=== PATIENT | male | born 1945 | race Caucasian/White ===

== ENCOUNTER 2022-10-23 00:47 | Day surgery (SDC) | payer BC, SELFPAY ==
[2022-10-09 08:45] VITALS: BMI 20.9
[2022-10-23 10:24] VITALS: BP 120/68; PULSE 68; RESP 20; TEMP 36.4; O2SAT 100
[2022-10-23] MEDS: LACTATED RINGERS 1,000 ML 150 ML IV CONT (10:27)
--- NOTE | 2022-10-23 10:45 | PM.HPGS ---
History of Present Illness History of Present Illness Consent: Risks, benefits, and alternatives have been discussed and questions answered. Patient agrees to proceed with procedure. Chief complaint: hx of colon polyps Narrative: Pablo White is a 77 year old male Presents for screening colonoscopy. Patient has a prior history of colon polyps most recently 2018. Family history is also significant for polyps in his sister. Patient reports his current weight appetite bowel movements are normal. Patient does report some vague epigastric discomfort. He has been on Nexium for acid reflux for many years but recently this has failed to alleviate his epigastric discomfort. Patient presents today for neoplasia screening colonoscopy. Review of Systems Review of Systems: Review of systems noncontributory. [facility] Past Medical History Medical History (Updated 10/23/22 @ 10:47 by Forrest Coreas MD) Cigarette nicotine dependence in remission GERD (gastroesophageal reflux disease) Pure hypercholesterolemia, unspecified Social History Social History Smoking packs per day: 1.5 Smoking cigarettes per day: 30.0 Years smoked: 50 Smoking pack-years: 75.00 Smoking status: Former smoker Second hand tobacco smoke exposure: No Alcohol intake: current Drinks per week: 1 Substance use: current Substance use type: marijuana Last use: 09/07/22 Lack of Transportation: No Lack of Food: Never True Current Housing: I Have Housing Concerned About Future Housing: No Difficulty Paying Gas/Electric Bills: No Difficulty Paying for Meds: No Currently Unemployed: No Difficulty w/ Childcare or Family Care: No Living arrangements: alone Occupation/Education: retired Gender identity (if verbalized by the patient): Male Sexual Orientation (if Verbalized by the Patient): Straight or Heterosexual Spiritual care concerns: No Meds Home Medications and Allergies Home Medications Medication Instructions Recorded Confirmed Type esomeprazole magnesium 40 mg 40 mg PO DAILY 10/07/22 10/23/22 History capsule,delayed release (Nexium) vitamin B complex 1 tab-cap PO DAILY 10/07/22 10/23/22 History Allergies Allergy/AdvReac Type Severity Reaction Status Date / Time aspirin Allergy Unknown HIVES Verified 10/23/22 10:23 ibuprofen Allergy Unknown HIVES Verified 10/23/22 10:23 Vital Signs Vital Signs - 24 hr 10/23/22 10:24 Temperature 97.5 F L Pulse Rate 68 Respiratory Rate 20 Blood Pressure 120/68 Pulse Oximetry 100 Oxygen Delivery Room Air Exam Narrative: Physical exam reveals patient to be alert. Vital signs are stable. HEENT exam is unremarkable. Patient is anicteric. Lungs are clear to auscultation and percussion. Heart is without murmur or extra sounds. Abdomen bowel sounds present soft nontender with no organomegaly. Digital external rectal exam is normal. Assessment and Plan Assessment and plan (1) History of colon polyps: Code(s): Z86.010 - Personal history of colonic polyps Status: Acute Assessment and Plan: Patient has a personal history of colon polyps as well as a family history of colon polyps. Plan for surveillance colonoscopy now and consider this at 3-5 year intervals in the future.
--- NOTE | 2022-10-23 11:00 | P.PNAN_ITS ---
Anes - Initial Pre Proc Eval Procedure: Operation Date: 10/23/22 11:15 Proposed Procedures p Colonoscopy - Forrest Coreas MD Date/Time: 10/23/22 11:00 Surgeon: Forrest Coreas MD Pre Op Diagnosis: hx of colon polyps Patient Data Age: 77 Gender: M Height: 1.8 m Weight: 61.6 kg Last Vital Signs Temp 97.5 F L 10/23/22 10:24 Pulse 68 10/23/22 10:24 Resp 20 10/23/22 10:24 BP 120/68 10/23/22 10:24 Pulse Ox 100 10/23/22 10:24 O2 Del Method Room Air 10/23/22 10:24 Allergies Allergy/AdvReac Type Severity Reaction Status Date / Time aspirin Allergy Unknown HIVES Verified 10/23/22 10:23 ibuprofen Allergy Unknown HIVES Verified 10/23/22 10:23 Home Medications Medication Instructions Recorded Confirmed Type esomeprazole magnesium 40 mg 40 mg PO DAILY 10/07/22 10/23/22 History capsule,delayed release (Nexium) vitamin B complex 1 tab-cap PO DAILY 10/07/22 10/23/22 History Patient hx anesthesia problems: none Family hx anesthesia problems: none Results Review: All pre-operative results and documents have been reviewed as part of the pre- operative evaluation. [facility] Past Medical History Medical History (Updated 10/23/22 @ 10:47 by Forrest Coreas MD) Cigarette nicotine dependence in remission GERD (gastroesophageal reflux disease) Pure hypercholesterolemia, unspecified Social History Social History Smoking packs per day: 1.5 Smoking cigarettes per day: 30.0 Years smoked: 50 Smoking pack-years: 75.00 Smoking status: Former smoker Second hand tobacco smoke exposure: No Alcohol intake: current Drinks per week: 1 Substance use: current Substance use type: marijuana Last use: 09/07/22 Lack of Transportation: No Lack of Food: Never True Current Housing: I Have Housing Concerned About Future Housing: No Difficulty Paying Gas/Electric Bills: No Difficulty Paying for Meds: No Currently Unemployed: No Difficulty w/ Childcare or Family Care: No Living arrangements: alone Occupation/Education: retired Gender identity (if verbalized by the patient): Male Sexual Orientation (if Verbalized by the Patient): Straight or Heterosexual Spiritual care concerns: No Anes - Eval Final PreProcedure Day of Procedure 10/23/22 11:00 Patient weight: normal Heart: regular rate and rhythm Lungs: clear to auscultation Airway: Mallampati scale class II Neurological: alert and oriented Last oral intake: >/= 8 hours ASA classification: III Emergent: no Anesthetic plan: proceed Anesthesia type and monitoring: general GIVS and standard monitoring Results Review: All pre-operative results and documents have been reviewed as part of the pre- operative evaluation. Informed Consent: The patient's anesthetic plan and its attendant risks and benefits were discussed with the patient/family/POA. Questions were solicited and answers provided to the satisfaction of the patient/family/POA.
[2022-10-23] MEDS: SIMETHICONE ORAL SUSPENSION 20 MG/0.3 ML 30 ML BOTTLE 0.6 ML IRRIGATION (12:11)
[2022-10-23 12:27] VITALS: BP 107/66; PULSE 76; RESP 17; O2SAT 100
[2022-10-23 12:37] VITALS: BP 106/74; PULSE 71; RESP 19; O2SAT 100
[2022-10-23 12:47] VITALS: BP 123/70; PULSE 54; RESP 19; O2SAT 100
== END 2022-10-23 12:56 | disposition home or self-care (01) ==
PROVIDERS: PCP Family Medicine; Visit Provider Internal Medicine Gastroenterology
PROC: 0DJD8ZZ Inspection of Lower Intestinal Tract, Via Natural or Artificial Opening Endoscopic (ICD-10-PCS; CPT 45378; principal; 2022-10-23 11:15)
DX: Z12.11 Encounter for screening for malignant neoplasm of colon (principal); D12.2 Benign neoplasm of ascending colon; D12.4 Benign neoplasm of descending colon; K64.8 Other hemorrhoids; K21.9 Gastro-esophageal reflux disease without esophagitis; E78.00 Pure hypercholesterolemia, unspecified; Z87.891 Personal history of nicotine dependence
CPT/HCPCS: 45385; 88305; J2704; J7120

== ENCOUNTER 2023-10-29 00:23 | Day surgery (SDC) | payer BC, SELFPAY ==
[2023-10-12 11:15] VITALS: BMI 19.4
[2023-10-29 08:47] VITALS: BP 113/77; PULSE 55; RESP 18; TEMP 36.3; O2SAT 100
[2023-10-29] MEDS: LACTATED RINGERS 1,000 ML 150 ML IV CONT (09:00)
--- NOTE | 2023-10-29 09:48 | PM.HPGS ---
History of Present Illness History of Present Illness Consent: Risks, benefits, and alternatives have been discussed and questions answered. Patient agrees to proceed with procedure. Chief complaint: GERD Narrative: Pablo White is a 78 year old male with gerd on longstanding ppi for years, recently discontinued for 2 months because worried about possible side effects but then developed hoarseness, now he is back on ppi. Still sometimes with breakthrough and throat discomfort after waking up despite diet changes, ppi is helping but not gone. Had egd but years ago. Review of Systems Review of Systems: All systems reviewed & are unremarkable except as noted in HPI and below PMFSH Past Medical History Medical History Cigarette nicotine dependence in remission GERD (gastroesophageal reflux disease) Pure hypercholesterolemia, unspecified Testicle cancer Family History Family History Father Heart disease Mother Lung cancer Sibling Heart disease Colon cancer Social History Social History Smoking packs per day: 1.5 Smoking cigarettes per day: 30.0 Years smoked: 50 Smoking pack-years: 75.00 Smoking status: Former smoker Tobacco type: cigarettes Second hand tobacco smoke exposure: No Alcohol intake: current Drinks per week: 1 Substance use: current Substance use type: other Other substance usage details: THC gummy-3-4x week Last use: 09/07/22 Do You Feel Safe in your Home?: Yes Lack of Transportation: No Lack of Food: Never True Current Housing: I Have Housing Concerned About Future Housing: No Difficulty Paying Gas/Electric Bills: No Difficulty Paying for Meds: No Currently Unemployed: No Education: High School Diploma/GED Difficulty w/ Childcare or Family Care: No Living arrangements: alone Occupation/Education: retired Gender identity (if verbalized by the patient): Male Sexual Orientation (if Verbalized by the Patient): Straight or Heterosexual Spiritual care concerns: No Meds Home Medications and Allergies Home Medications Medication Instructions Recorded Confirmed Type vitamin B complex 1 tab-cap PO DAILY 10/07/22 10/12/23 History vitamin D3 25 mcg (1,000 unit)-vit 1 tablet PO DAILY 09/08/23 10/12/23 History K2 90 mcg disintegrating tablet melatonin 3 mg capsule 3 mg PO QHS 10/06/23 10/12/23 History omega 9-bwl-ctc-fish oil 60 mg-90 1 cap PO DAILY 10/06/23 10/12/23 History mg-500 mg capsule (Fish Oil) omeprazole 40 mg capsule,delayed 40 mg PO DAILY #30 caps 10/06/23 10/12/23 Rx release Allergies Allergy/AdvReac Type Severity Reaction Status Date / Time aspirin Allergy Unknown HIVES Verified 10/29/23 08:46 ibuprofen Allergy Unknown HIVES Verified 10/29/23 08:46 Vital Signs Vital Signs - 24 hr 10/29/23 08:47 Temperature 97.3 F L Pulse Rate 55 L Respiratory Rate 18 Blood Pressure 113/77 Pulse Oximetry 100 Oxygen Delivery Room Air Exam Const: General: comfortable and no acute distress HENMT: Face/Nose/Sinus: Normal nares present Eyes: General: appearance normal, both eyes and all related structures Neck: Neck: no JVD Resp: Auscultation: clear to auscultation bilaterally Cardio: Rate: regular rate Rhythm: regular rhythm GI: Inspection: non-distended GI Palp: Yes Soft to palpation Skin: General skin exam: normal color Neuro: General: gait normal Speech: normal speech Extrem: General: normal to inspection Psych: Mental Status: mental status grossly normal Assessment and Plan Assessment and plan (1) GERD (gastroesophageal reflux disease): Qualifiers: Esophagitis presence: esophagitis presence not specified Qualified Code(s): K21.9 - Gastro-esophageal reflux disease without esophagitis Code(s): K21.9 - Carlos Alberto
[2023-10-29 10:04] VITALS: BP 101/68; PULSE 64; RESP 18; O2SAT 100
[2023-10-29 10:14] VITALS: BP 112/70; PULSE 52; RESP 14; O2SAT 100
[2023-10-29 10:24] VITALS: BP 119/78; PULSE 66; RESP 18; O2SAT 100
== END 2023-10-29 10:36 | disposition home or self-care (01) ==
PROVIDERS: PCP Family Medicine; Visit Provider Internal Medicine Gastroenterology
PROC: 0DJ08ZZ Inspection of Upper Intestinal Tract, Via Natural or Artificial Opening Endoscopic (ICD-10-PCS; CPT 43235; principal; 2023-10-29 10:00)
DX: K29.50 Unspecified chronic gastritis without bleeding (principal); E78.00 Pure hypercholesterolemia, unspecified; Z87.891 Personal history of nicotine dependence; Z85.47 Personal history of malignant neoplasm of testis; Z80.1 Family history of malignant neoplasm of trachea, bronchus and lung; Z80.0 Family history of malignant neoplasm of digestive organs; Z82.49 Family history of ischemic heart disease and other diseases of the circulatory system
CPT/HCPCS: 43239; 88305; J2704; J7120

== ENCOUNTER 2024-09-19 20:51 | Inpatient (IN) | payer BC, SELFPAY ==
--- NOTE | ~2024-09-19 | CT_ITS ---
Non-contrast CT scan of the Abdomen and Pelvis Clinical indication: Abdominal pain Technique: 2.5 mm axial scans were obtained through the abdomen and pelvis without intravenous or or al contrast. Dose reduction technique was used on this scan by utilizing automated exposure control a nd iterative reconstruction technique. The dose-length product (DLP) was 211.90 mGy-cm. COMPARISON: 09/20/2024 Findings: Images through the lung bases reveal no abnormalities. There is no evidence of renal or ureteral calculi. The kidneys and the ureters are nondilated. The liver, spleen, pancreas, gallbladder, and adrenals appear normal. There are atherosclerotic calci fications of the aorta. . There is no evidence of bowel obstruction. Images through the pelvis were performed. There is no evidence of ascites or lymphadenopathy. Urinary bladder unremarkable. Prostate gland enlarged. Impression: No acute abnormality. Reviewed, dictated and finalized at [facility]. Impression: No acute abnormality.
--- NOTE | ~2024-09-19 | CT_ITS ---
Clinical Indication: Abdominal pain, chest pain CT Scan of the Chest, Abdomen, and Pelvis with Contrast: Technique: Contiguous sections were acquired throughout the chest, abdomen, and pelvis after intraven ous administration of 100 cc of Omnipaque 350. Dose reduction technique was used on this scan by amanda douglas automated exposure control and iterative reconstruction technique. The dose-length product (DL P) was 394.28 mGy-cm. Findings: There is no evidence of any significant mediastinal, hilar or axillary lymphadenopathy. The mediastin al soft tissues and vascular structures appear normal. There is no evidence of pleural or pericardial effusion. There is mild emphysema. Probable focal atelectatic change or scarring at the lingula anteriorly. The liver, spleen, pancreas, gallbladder, adrenals and kidneys are within normal limits. There are at herosclerotic calcifications of the aorta. No lymphadenopathy. No bowel obstruction or bowel wall thickening. There is no evidence to suggest acute appendicitis. Urinary bladder is unremarkable. No pelvic mass seen. No ascites. Impression: Mild emphysema. Probable focal atelectatic change or scarring at the anterior lingula. Pneumonia less likely. No significant abnormality in the abdomen or pelvis. Reviewed, dictated and finalized at [facility]. Impression: Mild emphysema. Probable focal atelectatic change or scarring at the anterior lingula. Pneumoni a less likely. No significant abnormality in the abdomen or pelvis.
--- OUTSIDE RECORDS SUMMARY | 2024-09-19 20:53 | XMS_ITS | Clinical Summary ---
Author Organization [facility] Address [address] [place] [id number] Care Team Providers Care Crm Architect Name Role Phone Ulises Ward MD Primary Care Provider Allergies Active Allergy Reactions Criticality Noted Date Comments Aspirin Hives 04/14/2023 Ibuprofen Hives 04/14/2023 Medications tamsulosin (FLOMAX) 0.4 MG Cap Take 1 capsule (0.4 mg total) by mouth daily. 30 capsule 3 Active oxyCODONE-acetamino phen (PERCOCET) 5-325 MG tabletIndications:A cute Pain < 7 Day Supply Take 1 tablet by mouth every 6 (six) hours as needed for Pain. Indications: Acute Pain < 7 Day Supply 15 tablet 3 Active ondansetron (ZOFRAN-ODT) 4 MG disintegrating tablet Take 1 tablet (4 mg total) by mouth every 8 (eight) hours as needed for Nausea. 20 tablet 3 Active Social History Tobacco Use Types Packs/Day Years Used Date Smoking Tobacco: Never Smokeless Tobacco: Never Tobacco Cessation:Counseling Given: Not Answered Alcohol Use Standard Drinks/Week Comments Never 0 (1 standard drink = 0.6 oz pur e alcohol) Sex and Gender Information Value Date Recorded Sex Assigned at Not on file Legal Sex Male 1:32 PM SECTIONIZER Gender Identity Not on file Sexual Orientation Not on file Last Filed Vital Signs Vital Sign Reading Time Taken Comments Blood Pressure 114/67 04/14/2023 6:36 PM SECTIONIZER Pulse 102 04/14/2023 6:36 PM SECTIONIZER Temperature 36.8 C (98.2 F) 04/14/2023 6:36 PM SECTIONIZER Respiratory Rate 20 04/14/2023 6:36 PM SECTIONIZER Oxygen Saturation 95% 04/14/2023 6:36 PM SECTIONIZER Inhaled Oxygen Concentration - - Weight 65.8 kg (145 lb) 04/14/2023 1:48 PM SECTIONIZER Height 180.3 cm (5' 11 ) 04/14/2023 1:48 PM SECTIONIZER Body Mass Index 20.22 04/14/2023 1:48 PM SECTIONIZER Plan of Treatment Health Maintenance Due Date Last Done Comments Hepatitis C 1963 DTaP, Tdap and Td Vaccines ( 1 - Tdap) 1966 Zoster Vaccines (1 of 2) 1997 Pneumococcal Vaccine: 50+ Years (2 of 2 - PPSV23) 11/15/2016 11/16/2015 RSV Immunization or 60+ Years (1 - 1-dose 75+ series) 2022 COVID-19 Vaccine (4 - 2023-2 5 season) 2024 04/18/2021, 08/31/2020, 08/10/2020 Meningococcal B Vaccine Aged Out No l onger eligible based on patient's age to complete this topic Meningococcal Vaccine Aged Out No juan gricelda eligible based on patient's age to complete this topic RSV Immunizations Under 20 Months Aged Out No longer eligible b ased on patient's age to complete this topic Insurance Care Teams Crm Architect Relationship Specialty Start Date End Date Ulises Ward MD PCP - General FAMILY PRACTICE 04/14/23
[2024-09-19 21:00] VITALS: BP 97/73; PULSE 93; RESP 20; TEMP 36.6; O2SAT 99
[2024-09-19 21:06] VITALS: BP 131/11
[2024-09-19 21:41] VITALS: BP 133/81; PULSE 149; RESP 16; O2SAT 100
--- NOTE | 2024-09-19 21:45 | ECG_ITS ---
Test Date: 2024-09-19 21:58:17 Measurements Intervals [place] Rate: 148 P: 0 [place]: 0 QRS: 92 QRSD: 81 T: 54 QT: 285 QTc: 447 Interpretive Statements ATRIAL FIBRILLATION WITH RAPID VENTRICULAR RESPONSE RIGHT AXIS DEVIATION POSSIBLE RIGHT VENTRICULAR CONDUCTION DELAY BASELINE ARTIFACT- I, II, III ,AVR, AVF, V1 ABNORMAL ECG No previous ECG available for comparison Electronically Signed On 09-20-2024 06:20:42 CDT by Jerod Pleitez D.O.
--- NOTE | 2024-09-19 21:46 | PC.NURSE ---
This RN notified EDP Torossian of pt HR stayig between 140-175. EDP gave no further orders at this time. This RN put in orders for EKG
[2024-09-19 21:51] VITALS: PULSE 141
[2024-09-19 23:30] VITALS: BP 116/81; PULSE 141
[2024-09-19] MEDS: dilTIAZem HCl INJ 25 MG/5 ML VIAL (23:30)
[2024-09-19] MEDS: SODIUM CHLORIDE 0.9% IV 1,000 ML 999 ML (23:30)
[2024-09-19] MEDS: dilTIAZem 100 MG/100 ML 100 MG/100 ML BAG IV CONT (23:30)
[2024-09-20] VITALS (22 sets, daily range): BP systolic 85–117; BP diastolic 56–80; PULSE 64–136; RESP 12–20; TEMP 36.3–36.7; O2SAT 97–100; BMI 18.4
--- NOTE | 2024-09-20 | ECHO_ITS ---
Patient Info Name: Pablo White Age: 79 years : 1945 Gender: Male Ht: 70 in Wt: 132 lbs BSA: 1.71 m2 HR: 77 bpm BP: 92 / 56 mmHg Heart Rhythm: Atrial Fibrillation Technical Quality: Fair Exam Date: 09/20/2024 2:46 PM Exam Location: Echo Lab Patient Status: Outpatient Admit Date: 09/20/2024 Staff Ordering Physician: Teri Dixon MD Filing Or Registry Clerk: Teagan Zelaya RDCS Attending Provider: Teri Dixon MD Exam Type: CA echo doppler color flow Study Info Indications - New onset Afib Complete two-dimensional, color flow and Doppler transthoracic echocardiogram is performed. Summary 1. Complete two-dimensional, color flow and Doppler transthoracic echocardiogram is performed. 2. Left ventricular chamber dimension is normal. 3. Left ventricular systolic function is normal, estimated at 60-65%. 4. The left ventricular diastolic function is normal. 5. E/e' 3 is not elevated. 6. Atrial fibrillation. 7. Left atrial chamber dimension is mildly enlarged. 8. There is mild mitral valve regurgitation. 9. There is mild tricuspid valve regurgitation. 10. No pulmonary hypertension, estimated pulmonary arterial systolic pressure is 32 mmHg. Left Ventricle E/e' 3 is not elevated. Atrial fibrillation. Left ventricular chamber dimension is normal. Left ventricular systolic function is normal, estimated at 60-65%. The left ventricular diastolic function is normal. Right Ventricle Right ventricular chamber dimension is normal. Right ventricular systolic function is normal. Left Atria Left atrial chamber dimension is mildly enlarged. Right Atria Right atrial chamber dimension is normal. Aortic Valve The aortic valve is trileaflet. There is no aortic valve stenosis. There is no aortic valve regurgitation. Pulmonic Valve There is no pulmonic regurgitation. Mitral Valve There is no mitral valve stenosis. There is mild mitral valve regurgitation. Tricuspid Valve There is mild tricuspid valve regurgitation. No pulmonary hypertension, estimated pulmonary arterial systolic pressure is 32 mmHg. Pericardium/Pleural There is no pericardial effusion. Inferior Vena Cava Normal inferior vena cava with >50% collapse upon inspiration consistent with normal right atrial pressure, 5 mmHg. Aorta The aortic root size at the sinus of Valsalva is normal. Left Ventricular Outflow Tract Name Value Normal LVOT 2D LVOT Diameter 2.0 cm Pulmonic Valve Name Value Normal RVOT Doppler RVOT Peak Gradient 2 mmHg PV Doppler PV Peak Gradient 3 mmHg Mitral Valve Name Value Normal MV Doppler MV Decel [place] 381 cm/s2 MV PHT 56 ms MV Area (PHT) 4.0 cm2 4.0-5.0 MV Diastolic Function MV E Peak Velocity 73 cm/s MV A Peak Velocity 2 cm/s MV E/A 41.7 MV Decel Time 192 ms MV Annular TDI MV E/e' (Septal) 0.0 <=8.0 MV E/e' (Lateral) 0.0 <=8.0 MV E/e' (Average) 0.0 Tricuspid Valve Name Value Normal TV Regurgitation Doppler TR Peak Velocity 259 cm/s TR Peak Gradient 27 mmHg Estimated PAP/RSVP RA Pressure 5 mmHg <=5 PA Systolic Pressure 32 mmHg <36 RV Systolic Pressure 32 mmHg <36 Aortic Valve Name Value Normal AV Regurgitation 2D LVOT Area 3.2 cm2 Ventricles Name Value Normal LV Dimensions 2D/MM IVS Diastolic Thickness (2D) 0.9 cm 0.6-1.0 LVID Diastole (2D) 4.1 cm 4.2-5.8 LVIW Diastolic Thickness (2D) 0.9 cm 0.6-1.0 LVID Systole (2D) 3.0 cm 2.5-4.0 LVOT Diameter 2.0 cm LV Mass (2D Cubed) 121.10 g 88.00-224.00 LV Mass Index (2D Cubed) 71 g/m2 49-115 Relative Wall Thickness (2D) 0.46 LV Fractional Shortening/Ejection Fraction 2D/MM LV Fractional Shortening (2D) 27 % 25-43 LV EF (2D Teicholz) 53 % 52-72 LV Diastolic Volume (4C MOD) 66 ml LV EF (4C MOD) 54 % LV Diastolic Length (4C) 6.5 cm LV Systolic Length (4C) 6.0 cm LV Stroke Volume (4C MOD) 36 ml Atria Name Value Normal LA Dimensions LA Volume (4C A-L) 32 ml Report Signatures
--- NOTE | 2024-09-20 00:56 | ED_ITS ---
HPI - Abdominal Pain General Chief Complaint: Abdominal Pain Stated Complaint: +Covid, Gastritis, weight loss Time Seen by Provider: 09/20/24 00:38 Source: patient Mode of arrival: ambulatory Limitations: no limitations History of Present Illness HPI narrative: This is a 79-year-old male who presents to the ED for chief complaint of abdominal pain over the past several days. States that he was diagnosed with COVID about a week ago and started on Paxlovid. States that he took the back slowed for 3 days but was having increasing abdominal pain. States that he has had a 12 lb weight loss because eating any kind of food is painful to the abdomen. States he has lost his appetite. Endorses mild shortness of breath as well as some chest discomfort. Related Data Home Medications ?Medication ?Instructions ?Recorded ?Confirmed ?Last Taken ?Type vitamin B complex 1 tab-cap PO DAILY 10/07/22 08/04/24 Unknown History vitamin D3 25 mcg (1,000 unit)-vit 1 tablet PO DAILY 09/08/23 08/04/24 Unknown History K2 90 mcg disintegrating tablet melatonin 3 mg capsule 3 mg PO QHS 10/06/23 08/04/24 Unknown History Allergies Allergy/AdvReac Type Severity Reaction Status Date / Time aspirin Allergy Unknown HIVES Verified 09/19/24 20:55 ibuprofen Allergy Unknown HIVES Verified 09/19/24 20:55 Review of Systems 2 Review of Systems: All systems as dictated in HPI [facility] Past Medical History Medical History Testicle cancer Cigarette nicotine dependence in remission GERD (gastroesophageal reflux disease) Pure hypercholesterolemia, unspecified Family History Family History Father Heart disease Mother Lung cancer Sibling Heart disease Colon cancer Social History Social History Smoking packs per day: 1.5 Smoking cigarettes per day: 30.0 Years smoked: 50 Smoking pack-years: 75.00 Smoking status: Former smoker Tobacco type: cigarettes Second hand tobacco smoke exposure: No Alcohol intake: current Drinks per week: 1 Substance use: current Substance use type: other Other substance usage details: THC gummy-3-4x week Last use: 09/07/22 Do You Feel Safe in your Home?: Yes Lack of Transportation: No Lack of Food: Never True Current Housing: I Have Housing Concerned About Future Housing: No Difficulty Paying Gas/Electric Bills: No Difficulty Paying for Meds: No Currently Unemployed: No Education: High School Diploma/GED Difficulty w/ Childcare or Family Care: No Living arrangements: alone Occupation/Education: retired Gender identity (if verbalized by the patient): Male Sexual Orientation (if Verbalized by the Patient): Straight or Heterosexual Spiritual care concerns: No Exam 2 Narrative: GENERAL: Well-appearing, well-nourished, and in no acute distress. HEAD: Normocephalic, atraumatic. EYES: PERRLA and EOMI. ENT: Nares clear, no rhinorrhea or epistaxis. Mucous membranes moist. Oropharynx without tonsillar hypertrophy exudate or other lesions. NECK: Supple. No adenopathy or masses. CHEST: No respiratory distress. Clear to auscultation. No wheezes rales or rhonchi HEART: Irregularly irregular rhythm. Rate in the 150s to 160s. No murmur heard. Normal peripheral pulses. ABDOMEN: Soft, nontender, nondistended, normal active bowel sounds. MSK: Normal range of motion. No edema. SKIN: Warm, dry, no rash. NEURO: Alert and oriented x4. No focal deficits. PSYCH: Normal mood and affect. Course Vital Signs Vital signs: Vital Signs Temperature 97.9 F 09/19/24 21:00 Pulse Rate 93 09/19/24 21:00 Respiratory Rate 20 09/19/24 21:00 Blood Pressure 97/73 L 09/19/24 21:00 Pulse Oximetry 99 09/19/24 21:00 Oxygen Delivery Room Air 09/19/24 21:00 Temperature 97.9 F 09/19/24 21:00 Pulse Rate 88 09/20/24 03:57 Respiratory Rate 17 09/20/24 03:57 Blood Pressure 103/79 09/20/24 03:57 Pulse Oximetry 99 09/20/24 03:57 Oxygen Delivery Room Air 09/19/24 21:00 MDM - Abdominal Pain MDM Narrative Medical decision making narrative: This is a 79-year-old male who presents to the ED for chief complaint of abdominal pain, chest discomfort, and loss of appetite in the setting of recent COVID and taking Paxlovid. Vitals on arrival show a heart rate in the 150s 160s. EKG showing new onset AFib RVR. Pressure stable in the 100s/70s. CBC remarkable for mildly decreased white count of 4.3. Slightly low bicarb of 19 and mildly elevated anion gap of 17, consistent with likely starvation ketosis. Troponin negative. TSH normal. Urinalysis does show 2+ ketones, consistent with starvation ketosis as well. No infection on UA. CTA chest abdomen and pelvis is negative for any acute finding. Patient was given diltiazem pushes orchard protocol diltiazem drip for new onset AFib. But did chief affected rate control while retaining good blood pressures. Chads Vasc is 2. He was given L of normal saline as well. Discussed the case with hospitalist who will admit the patient. Requesting Lovenox, due to elevated chads Vasc score. Patient is understanding and agreeable with plan for admission at this time. Lab Data 09/19/24 22:02 09/20/24 01:33 Labs: Lab Results 09/19/24 09/19/24 09/19/24 Range/Units 22:01 22:02 22:12 WBC 4.3 L (4.5-10.0) K/mm3 RBC 4.04 L (4.6-6.20) M/mm3 Hgb 13.5 L (14.0-18.0) g/dL Hct 40.6 L (42.0-52.0) % MCV 100.5 H (80-100) fl MCH 33.4 (26-34) pg MCHC 33.3 (32-36) g/dl RDW 11.8 (11.5-14.5) % Plt Count 257 (150-375) k/mm3 MPV 11.2 H (7.4-10.4) fl Immature Gran % (Auto) 0.0 (0-0.5) % Neut % (Auto) 51.3 (45.5-73.1) % Lymph % (Auto) 34.5 (18.3-44.2) % [place] % (Auto) 13.8 H (2.6-8.5) % Eos % (Auto) 0.2 (0-4.4) % Baso % (Auto) 0.2 (0.2-1.2) % Lymph # (Auto) 1.47 (0.9-3.2) K/mm3 [place] # (Auto) 0.6 (0.1-0.6) K/mm3 Eos # (Auto) 0.0 (0-0.3) K/mm3 Baso # (Auto) 0.0 (0.0-0.1) K/mm3 Abs Immat Gran (auto) 0.00 (0.00-0.031) K/mm3 Absolute Neuts (auto) 2.2 (1.3-6.7) K/mm3 Absolute Nucleated RBC 0.000 (0.0-0.012) K/mm3 Nucleated RBC % 0.0 (0.0-0.2) % Sodium 136 L (137-145) mmol/L Potassium 4.2 (3.4-5.0) mmol/L Chloride 100 (98-107) mmol/L Carbon Dioxide 19 L (22-30) mmol/L Anion Gap 17 H (4-12) mmol/L BUN 13 (9-20) mg/dL Creatinine 1.25 (0.7-1.3) mg/dL Estim Creat Clear Calc 38 ml/min Estimated GFR 56 L (59 - ) Glucose 106 (65-110) mg/dL Calcium 9.1 (8.4-10.2) mg/dL Phosphorus 3.0 (2.5-4.5) mg/dL Magnesium 1.9 (1.6-2.3) mg/dL Total Bilirubin 0.8 (0.2-1.3) mg/dL Direct Bilirubin (0-0.3) mg/dL AST 34 (17-59) U/L ALT 25 (6-50) U/L Alkaline Phosphatase 83 (38-126) U/L Troponin I (0.000-0.034) ng/mL Total Protein 7.0 (6.3-8.2) g/dL Albumin 4.0 (3.5-5.1) g/dL Lipase 118 (23-300) U/L TSH (Reflex) (0.465-4.68) uIU/mL Urine Color Dark yellow (Yellow) Urine Appearance Cloudy H (Clear) Urine pH 5.5 (5.0-9.0) Ur Specific [place] 1.024 (1.001-1.035) Urine Protein 1+ H (Negative) mg/dL Urine Glucose (UA) Negative (Negative) mg/dL Urine Ketones 2+ H (Negative) mg/dL Ur Blood (Man) Negative (Negative) Urine Nitrate Negative (Negative) Urine Bilirubin Negative (Negative) Urine Urobilinogen 1.0 (<2.0) mg/dL Add Ur Microanalysis Reviewed Leukocyte Esterase Rfl Negative (Negative) YUSUF/UL Urine RBC 0-2 (0-2) /hpf Urine WBC 0-5 (0-3) /hpf Ur Squamous Epith Cells None seen (Few) /hpf Urine Bacteria None seen /hpf Urine Casts 6-10 Urine Mucus Present /lpf 09/20/24 09/20/24 Range/Units 01:17 01:33 WBC (4.5-10.0) K/mm3 RBC (4.6-6.20) M/mm3 Hgb (14.0-18.0) g/dL Hct (42.0-52.0) % MCV (80-100) fl MCH (26-34) pg MCHC (32-36) g/dl RDW (11.5-14.5) % Plt Count (150-375) k/mm3 MPV (7.4-10.4) fl Immature Gran % (Auto) (0-0.5) % Neut % (Auto) (45.5-73.1) % Lymph % (Auto) (18.3-44.2) % Hayes % (Auto) (2.6-8.5) % Eos % (Auto) (0-4.4) % Baso % (Auto) (0.2-1.2) % Lymph # (Auto) (0.9-3.2) K/mm3 [place] # (Auto) (0.1-0.6) K/mm3 Eos # (Auto) (0-0.3) K/mm3 Baso # (Auto) (0.0-0.1) K/mm3 Abs Immat Gran (auto) (0.00-0.031) K/mm3 Absolute Neuts (auto) (1.3-6.7) K/mm3 Absolute Nucleated RBC (0.0-0.012) K/mm3 Nucleated RBC % (0.0-0.2) % Sodium (137-145) mmol/L Potassium (3.4-5.0) mmol/L Chloride (98-107) mmol/L Carbon Dioxide (22-30) mmol/L Anion Gap (4-12) mmol/L BUN (9-20) mg/dL Creatinine 1.30 (0.7-1.3) mg/dL Estim Creat Clear Calc 36 ml/min Estimated GFR 54 L (59 - ) Glucose (65-110) mg/dL Calcium (8.4-10.2) mg/dL Phosphorus (2.5-4.5) mg/dL Magnesium (1.6-2.3) mg/dL Total Bilirubin 0.7 (0.2-1.3) mg/dL Direct Bilirubin 0.0 (0-0.3) mg/dL AST 34 (17-59) U/L ALT 25 (6-50) U/L Alkaline Phosphatase 75 (38-126) U/L Troponin I < 0.012 (0.000-0.034) ng/mL Total Protein 6.0 L (6.3-8.2) g/dL Albumin 3.6 (3.5-5.1) g/dL Lipase (23-300) U/L TSH (Reflex) 1.900 (0.465-4.68) uIU/mL Urine Color (Yellow) Urine Appearance (Clear) Urine pH (5.0-9.0) Ur Specific [place] (1.001-1.035) Urine Protein (Negative) mg/dL Urine Glucose (UA) (Negative) mg/dL Urine Ketones (Negative) mg/dL Ur Blood (Man) (Negative) Urine Nitrate (Negative) Urine Bilirubin (Negative) Urine Urobilinogen (<2.0) mg/dL Add Ur Microanalysis Leukocyte Esterase Rfl (Negative) YUSUF/UL Urine RBC (0-2) /hpf Urine WBC (0-3) /hpf Ur Squamous Epith Cells (Few) /hpf Urine Bacteria /hpf Urine Casts Urine Mucus /lpf ECG Data EKG #1: ECG completion date: 09/20/24 ECG completion time: 21:58 Prior ECG tracings: available for review Interpretation: Atrial fibrillation with RVR Rate 148 Normal QRS No acute ischemic findings Discharge Plan Discharge Clinical Impression: Atrial fibrillation with RVR, Gastritis Patient Disposition: Still a Patient Condition: Stable Instructions: Antibiotic Form Patient Language: Stateless Prescriptions: No Action melatonin 3 mg capsule 3 mg PO QHS omeprazole 40 mg capsule,delayed release(DR/EC) 40 mg PO BID Qty: 180 2RF vitamin D3-vitamin K2 25 mcg (1,000 unit)-90 mcg tablet,disintegrating 1 tablet PO DAILY vitamin B complex 1 tab-cap PO DAILY Paxlovid 300 mg (150 mg x 2)-100 mg tablets,dose pack See Rx Instructions PO .COMPLEX Qty: 30 0RF Rx Instructions: take TWO 150 mg tablets of nirmatrelvir with ONE 100 mg tablet of ritonavir twice daily for 5 days PO Follow-up/Referrals: Ulises Ward MD [Primary Care Provider] - Time of Disposition: 04:55 Quality HEART score for chest pain patients History: slightly suspicious ECG: non specific repolarization disturbance/LBTB/PM Age: > or = to 65 years Risk factors: 1 or 2 risk factors Troponin: < or = to 1x normal limit Heart score: 4
--- OUTSIDE RECORDS SUMMARY | 2024-09-20 00:56 | XMS_ITS | Clinical Summary ---
Author Organization [facility] Address [address] [place] [id number] Care Team Providers Care Cartography Professor Name Role Phone Ulises Ward MD Primary Care Provider [phone] Allergies Active Allergy Reactions Criticality Noted Date [...] on file Legal Sex Male 1:32 PM COMPUTER LAB ASSISTANT Gender Identity Not on file Sexual Orientation Not on file Last Filed Vital Signs Vital Sign Reading Time Taken Comments Blood Pressure 114/67 04/14/2023 6:36 PM COMPUTER LAB ASSISTANT Pulse 102 04/14/2023 6:36 PM COMPUTER LAB ASSISTANT Temperature 36.8 C (98.2 F) 04/14/2023 6:36 PM COMPUTER LAB ASSISTANT Respiratory Rate 20 04/14/2023 6:36 PM COMPUTER LAB ASSISTANT Oxygen Saturation 95% 04/14/2023 6:36 PM COMPUTER LAB ASSISTANT Inhaled Oxygen Concentration - - Weight 65.8 kg (145 lb) 04/14/2023 1:48 PM COMPUTER LAB ASSISTANT Height 180.3 cm (5' 11 ) 04/14/2023 1:48 PM COMPUTER LAB ASSISTANT Body Mass Index 20.22 04/14/2023 1:48 PM COMPUTER LAB ASSISTANT Plan of Treatment Health Maintenance Due Date [...] to complete this topic Insurance Care Teams Cartography Professor Relationship Specialty Start Date End Date Ulises Ward MD PCP - General FAMILY PRACTICE 04/14/23
--- NOTE | 2024-09-20 01:07 | ECG_ITS ---
Test Date: 2024-09-20 01:14:47 Measurements Intervals [place] Rate: 120 P: 0 PA: 0 QRS: 82 QRSD: 90 T: 48 QT: 315 QTc: 445 Interpretive Statements ATRIAL FIBRILLATION WITH RAPID VENTRICULAR RESPONSE INCOMPLETE RIGHT BUNDLE BRANCH BLOCK LOW QRS VOLTAGE IN PRECORDIAL LEADS BASELINE ARTIFACT- I, II, III, AVR, AVF, V1, V4 ABNORMAL ECG Compared to ECG 09/19/2024 21:58:17 HEART RATE HAS DECREASED Electronically Signed On 09-20-2024 06:21:37 CDT by Jerod Pleitez D.O.
[2024-09-20 01:31] LABS: Alanine Aminotransferase 25 U/L (6-50); Alkaline Phosphatase 83 U/L (38-126); Anion Gap 17 mmol/L (4-12); Aspartate Amino Transferase 34 U/L (17-59); Bilirubin,Total 0.8 mg/dL (0.2-1.3); Blood Urea Nitrogen 13 mg/dL (9-20); Calcium 9.1 mg/dL (8.4-10.2); Carbon Dioxide 19 mmol/L (22-30); Chloride 100 mmol/L (98-107); Estimated CRCL calculation 38 ml/min; Estimated Glomerular Filt Rate 56; Glucose 106 mg/dL (65-110); Lipase 118 U/L (23-300); Potassium 4.2 mmol/L (3.4-5.0); Sodium 136 mmol/L (137-145)
[2024-09-20 01:34] LABS: Estimated CRCL calculation 36 ml/min; Estimated Glomerular Filt Rate 54
[2024-09-20 01:55] LABS: Troponin I < 0.012 ng/mL (0.000-0.034)
[2024-09-20 02:03] LABS: Alanine Aminotransferase 25 U/L (6-50); Albumin Level 3.6 g/dL (3.5-5.1); Alkaline Phosphatase 75 U/L (38-126); Aspartate Amino Transferase 34 U/L (17-59); Bilirubin,Total 0.7 mg/dL (0.2-1.3)
[2024-09-20 02:09] LABS: Basophils Percent Auto 0.2 % (0.2-1.2); Eosinophils Percent Auto 0.2 % (0-4.4); Hematocrit 40.6 % (42.0-52.0); Hemoglobin 13.5 g/dL (14.0-18.0); Lymphocytes Absolute Auto 1.47 K/mm3 (0.9-3.2); Lymphocytes Percent Auto 34.5 % (18.3-44.2); Mean Corpuscular HGB Conc 33.3 g/dl (32-36); Mean Corpuscular Hemoglobin 33.4 pg (26-34); Mean Corpuscular Volume 100.5 fl (80-100); Mean Platelet Volume 11.2 fl (7.4-10.4); Monocytes Absolute Auto 0.6 K/mm3 (0.1-0.6); Monocytes Percent Auto 13.8 % (2.6-8.5); Neutrophils Absolute Auto 2.2 K/mm3 (1.3-6.7); Neutrophils Percent Auto 51.3 % (45.5-73.1); Platelet Count Result 257 k/mm3 (150-375); Red Blood Count 4.04 M/mm3 (4.6-6.20); Red Cell Distribution Width 11.8 % (11.5-14.5); White Blood Count 4.3 K/mm3 (4.5-10.0)
[2024-09-20 02:14] LABS: Add Urine Microscopic? YES; Appearance Urine Cloudy (Clear); Bacteria Urine None Seen /hpf; Bilirubin Urine Negative (Negative); Blood Urine Negative (Negative); Color Urine Dark Yellow (Yellow); Glucose Urine UA Negative (Negative); Ketones Urine 2+ mg/dL (Negative); Leukocyte Esterase Ur Negative LEU/UL (Negative); Mucus Urine Present /lpf; Need Manual Microscopic Reviewed; Nitrate Urine Negative (Negative); Protein Urine 1+ mg/dL (Negative); RBC Urine 0-2 /hpf (0-2); Specific Grav Ur 1.024 (1.001-1.035); Squamous Epithelial Cell Urine None Seen /hpf (Few); WBC Urine 0-5 /hpf (0-3); pH Urine 5.5 (5.0-9.0)
[2024-09-20 02:56] LABS: Magnesium 1.9 mg/dL (1.6-2.3)
--- NOTE | 2024-09-20 04:25 | ECG_ITS ---
Test Date: 2024-09-20 04:38:09 Measurements Intervals [place] Rate: 90 P: 0 DC: 0 QRS: 82 QRSD: 82 T: 52 QT: 363 QTc: 446 Interpretive Statements ATRIAL FIBRILLATION LOW QRS VOLTAGE IN PRECORDIAL LEADS ABNORMAL ECG Compared to ECG 09/20/2024 01:14:47 HEART RATE HAS DECREASED Electronically Signed On 09-20-2024 06:21:58 CDT by Jerod Pleitez D.O.
[2024-09-20 05:21] LABS: Troponin I < 0.012 ng/mL (0.000-0.034)
--- NOTE | 2024-09-20 05:50 | P.HP_ITS ---
H&P: [facility] History of Present Illness Date/Time: 09/20/24 05:50 Chief Complaint: Abdominal pain Narrative: 79-year-old male with past medical history GERD, hypocholesterolemia presents with abdominal pain over past several days. He also reports he was diagnosed with COVID about a week [employer] and started on Paxlovid. However he lost his appetite afterwards. In [place] ER he was found to be in atrial fi brillation with RVR with rate in the 150s. This is new diagnosis. Anion gap 17. Troponin negative. TSH within normal limits. CTA chest abdomen negative for any significant acute finding. He received diltiazem 10 mg IV x1, Zofran 4 mg IV x1, then placed on a diltiazem GTT at 10 milligrams/hour. Placed on normal saline infusion at 125 cc/hour. Review of Systems Review of Systems: All systems reviewed & are unremarkable except as noted in HPI and below (HPI) [facility] Past Medical History Medical History Testicle cancer Cigarette nicotine dependence in remission GERD (gastroesophageal reflux disease) Pure hypercholesterolemia, unspecified Family History Family History Father Heart disease Mother Lung cancer Sibling Heart disease Colon cancer Social History Social History Smoking packs per day: 1.5 Smoking cigarettes per day: 30.0 Years smoked: 50 Smoking pack-years: 75.00 Smoking status: Former smoker Tobacco type: cigarettes Second hand tobacco smoke exposure: No Alcohol intake: current Drinks per week: 1 Substance use: current Substance use type: other Other substance usage details: THC gummy-3-4x week Last use: 09/07/22 Do You Feel Safe in your Home?: Yes Lack of Transportation: No Lack of Food: Never True Current Housing: I Have Housing Concerned About Future Housing: No Difficulty Paying Gas/Electric Bills: No Difficulty Paying for Meds: No Currently Unemployed: No Education: High School Diploma/GED Difficulty w/ Childcare or Family Care: No Living arrangements: alone Occupation/Education: retired Gender identity (if verbalized by the patient): Male Sexual Orientation (if Verbalized by the Patient): Straight or Heterosexual Spiritual care concerns: No Meds Home Medications and Allergies Home Medications ?Medication ?Instructions ?Recorded ?Confirmed ?Type vitamin B complex 1 tab-cap PO DAILY 10/07/22 08/04/24 History vitamin D3 25 mcg (1,000 unit)-vit 1 tablet PO DAILY 09/08/23 08/04/24 History K2 90 mcg disintegrating tablet melatonin 3 mg capsule 3 mg PO QHS 10/06/23 08/04/24 History omeprazole 40 mg capsule,delayed 40 mg PO BID #180 caps 08/04/24 08/04/24 Rx release nirmatrelvir 300 mg (150 mg See Rx Instructions PO .COMPLEX 09/16/24 Rx x2)-ritonavir 100 mg tablet,dose #30 ea pack (Paxlovid) Allergies Allergy/AdvReac Type Severity Reaction Status Date / Time aspirin Allergy Unknown HIVES Verified 09/19/24 20:55 ibuprofen Allergy Unknown HIVES Verified 09/19/24 20:55 Vital Signs Vital Signs - 24 hr 09/19/24 21:00 09/19/24 21:06 09/19/24 21:41 Temperature 97.9 F Pulse Rate 93 149 H Respiratory Rate 20 16 Blood Pressure 97/73 L 131/11 L 133/81 Pulse Oximetry 99 100 Oxygen Delivery Room Air 09/19/24 21:51 09/19/24 23:30 09/20/24 00:45 Temperature Pulse Rate 141 H 141 H 99 Respiratory Rate Blood Pressure 116/81 Pulse Oximetry Oxygen Delivery 09/20/24 00:45 09/20/24 01:29 09/20/24 02:24 Temperature Pulse Rate 90 119 H 136 H Respiratory Rate 12 Blood Pressure 107/71 117/69 114/80 Pulse Oximetry 98 Oxygen Delivery 09/20/24 02:33 09/20/24 02:33 09/20/24 03:57 Temperature Pulse Rate 94 94 88 Respiratory Rate 13 17 Blood Pressure 106/64 103/79 Pulse Oximetry 98 99 Oxygen Delivery 09/20/24 04:19 09/20/24 05:25 Temperature Pulse Rate 83 82 Respiratory Rate 14 Blood Pressure 105/66 Pulse Oximetry 99 Oxygen Delivery Exam Const: General: comfortable and no acute distress Other: A&O x3 HENMT: Mouth: Yes dry mucous membranes Eyes: Pupils: Equal, round and reactive pupils present Neck: Neck: supple Resp: Effort & Inspection: normal respiratory effort Auscultation: clear to auscultation bilaterally Cardio: Rate: regular rate Rhythm: abnormal rhythm Heart sounds: no gallops, no murmurs and no rubs GI: GI Palp: Yes Soft to palpation and No Tenderness to palpation present (GI) : General: Yes bladder normal to palpation Extrem: General: no edema H&P: Results Labs Labs: Short CBC 09/19/24 Range/Units 22:02 WBC 4.3 L (4.5-10.0) K/mm3 Hgb 13.5 L (14.0-18.0) g/dL Hct 40.6 L (42.0-52.0) % Plt Count 257 (150-375) k/mm3 BMP 09/19/24 09/20/24 22:02 01:33 Sodium 136 L Potassium 4.2 Chloride 100 Carbon Dioxide 19 L BUN 13 Creatinine 1.25 1.30 Glucose 106 Calcium 9.1 Cardiac Enzymes 09/20/24 09/20/24 Range/Units 01:17 04:37 Troponin I < 0.012 < 0.012 (0.000-0.034) ng/mL Liver Function 09/19/24 09/20/24 Range/Units 22:02 01:17 Total Bilirubin 0.8 0.7 (0.2-1.3) mg/dL Direct Bilirubin 0.0 (0-0.3) mg/dL AST 34 34 (17-59) U/L ALT 25 25 (6-50) U/L Alkaline Phosphatase 83 75 (38-126) U/L Albumin 4.0 3.6 (3.5-5.1) g/dL Urine 09/19/24 Range/Units 22:12 Urine Color Dark yellow (Yellow) Urine Appearance Cloudy H (Clear) Urine pH 5.5 (5.0-9.0) Ur Specific [place] 1.024 (1.001-1.035) Urine Protein 1+ H (Negative) mg/dL Urine Glucose (UA) Negative (Negative) mg/dL Assessment and Plan Assessment and plan (1) Atrial fibrillation with RVR: Code(s): I48.91 - Unspecified atrial fibrillation Status: Acute (2) Dehydration: Code(s): E86.0 - Dehydration Status: Acute (3) GERD (gastroesophageal reflux disease): Qualifiers: Esophagitis presence: esophagitis presence not specified Qualified Code(s): K21.9 - Gastro-esophageal reflux disease without esophagitis Code(s): K21.9 - Gastro-esophageal reflux disease without esophagitis Status: Acute (4) Gastritis: Code(s): K29.70 - Gastritis, unspecified, without bleeding Status: Acute Plan 79-year-old male with past medical history GERD, hypocholesterolemia presents with abdominal pain over past several days. He also reports he was diagnosed with COVID about a week [employer] and started on Paxlovid. However he lost his appetite afterwards. In [place] ER he was found to be in atrial fibrillation with RVR with rate in the 150s. This is new diagnosis. Anion gap 17. Troponin negative. TSH within normal limits. CTA chest abdomen negative for any significant acute finding. He received diltiazem 10 mg IV x1, Zofran 4 mg IV x1, then placed on a diltiazem GTT at 10 milligrams/hour. Placed on normal saline infusion at 125 cc/hour. ----- Upon reexamination in the ER the patient was resting comfortably. CT abdomen pelvis not demonstrate acute findings in the GI tract. Lipase normal. History of GERD, takes omeprazole at home. Start Protonix 40 mg IV Q 24 hours. Monitor for symptom resolution. Diltiazem at 10 milligrams/hour his rate currently steady in the 70s. Blood pressure acceptable. Order placed to decrease at 5 milligrams/hour. TSH within normal limits. Start metoprolol 25 mg p.o. b.i.d.. 2D echocardiogram ordered. He is dehydrated, continue normal saline for now. Received Lovenox 60 mg subQ. Check lactic acid repeat BMP. Elevated anion gap likely due to starvation ketosis. ----- SCDs. Full code. Normal saline infusion.
--- NOTE | 2024-09-20 05:51 | ADMGEN ---
This patient, Pablo Whtie, was admitted to IMU Room 204-01. Patient/family oriented to hospital policies and general routines including ID bracelet, bed and alarms, visiting hours, pain management, procedures, bathroom and other care routines, personal items, smoking policy, room service/diet, and visiting hours. Information on how to activate the Rapid Response Team has been discussed. Patient/Family are encouraged to report perceived risks to care and to ask questions if they do not understand what they are told or what they should do.
[2024-09-20 06:04] LABS: Potassium 3.9 mmol/L (3.4-5.0)
[2024-09-20 06:18] LABS: Anion Gap 12 mmol/L (4-12); Blood Urea Nitrogen 12 mg/dL (9-20); Calcium 8.2 mg/dL (8.4-10.2); Carbon Dioxide 21 mmol/L (22-30); Chloride 102 mmol/L (98-107); Estimated CRCL calculation 44 ml/min; Estimated Glomerular Filt Rate > 60; Glucose 86 mg/dL (65-110); Sodium 135 mmol/L (137-145)
[2024-09-20] MEDS: SODIUM CHLORIDE 0.9% IV 1,000 ML 125 ML IV CONT ×2 (06:53→16:54)
[2024-09-20] MEDS: ENOXAPARIN 60 MG/0.6 ML SYRINGE SUB-Q (06:56)
[2024-09-20] MEDS: PANTOPRAZOLE SODIUM IV 40 MG VIAL IV PUSH (06:56)
[2024-09-20 07:04] LABS: Lactic Acid Reflex 1.1 mmol/L (0.7-2.0)
[2024-09-20] MEDS: dilTIAZem 100 MG/100 ML 100 MG/100 ML BAG 10 MG IV CONT (07:24)
[2024-09-20] MEDS: METOPROLOL TARTRATE 25 MG TABLET PO ×2 (08:40→20:06)
[2024-09-20 09:10] LABS: Magnesium 1.9 mg/dL (1.6-2.3)
[2024-09-20] MEDS: SIMETHICONE 125 MG CHEW TAB PO ×2 (11:26→17:55)
[2024-09-20 12:03] LABS: Alveolar/Arterial O2 Gradient 17.4 mmHg; Base Excess ABG -3.2 mEq/l (+/-2.0); Fractional Inspired Oxygen 21 %; HCO3 ABG 19.7 mEq/l (22.0-26.0); Oxygen Content ABG 18.1 %vol (16.0-22.0); Oxygen Saturation ABG 97.7 % (95.0-100.0); Oxyhemoglobin 97.1 % THb (90.0-100.0); PCO2 ABG 29.6 mmHg (35.0-45.0); PO2 ABG 96.9 mmHg (80.0-100.0); PO2 FiO2 Ratio Arterial Blood 4.61 %; Total Hemoglobin 13.2 g/dL (12.0-18.0); pH ABG 7.442 (7.350-7.450)
[2024-09-20 12:05] LABS: Device ROOM AIR; Modified Allen's Test Pass; Site Drawn LEFT RADIAL
[2024-09-20 12:10] LABS: NT Pro B Type Natriuretic Pept 948 pg/mL (19.9-100)
[2024-09-20 13:43] LABS: Influenza A QL RT-PCR Negative (Negative); Influenza B QL RT-PCR Negative (Negative); RSV RNA, RT-PCR Negative (Negative); SARS-CoV-2 RNA PCR Positive (Negative)
--- NOTE | 2024-09-20 14:36 | P.CONCA_ITS ---
Assessment and Plan Assessment and plan (1) Atrial fibrillation with RVR: Code(s): I48.91 - Unspecified atrial fibrillation Status: Acute Assessment and Plan: This is a new diagnosis. Chronicity is unknown. Discussed this diagnosis with the patient including pathophysiology, management strategies including rate control versus rhythm control, and risks/complications. Since patient is adequately rate controlled and asymptomatic, will pursue rate control strategy. * Continue metoprolol 25 mg q.12 hours, up titrate if needed * He has a CHADS2 Vasc score of 2. Anticoagulation is indicated. Will start on Eliquis 5 mg p.o. b.i.d. * Echocardiogram is ordered and pending * If he remains in atrial fibrillation, we will plan for outpatient cardioversion after he has been anticoagulated for at least 4-6 weeks. * If echocardiogram unremarkable and he remains rate controlled, anticipate discharge tomorrow. History of Present Illness History of Present Illness Consult date/time: 09/20/24 14:36 Requesting physician: Keenan Walker MD Consult reason: atrial fibrillation Reason For Visit: Afib RVR, Gastritis Narrative: Pablo White is a 79 year old male with history of GERD and hyperlipidemia. This is a patient who comes to the hospital with loss of appetite. He was diagnosed with COVID about a week ago and was prescribed Paxil of id and since that time has not had much of an appetite. He came to the emergency room because of this and was found to be in atrial fibrillation with rapid ventricular response. This is a new diagnosis for the patient. He was placed on a diltiazem drip and started on oral metoprolol. He became hypotensive, therefore the diltiazem drip was stopped he remains on metoprolol. His heart rate is well controlled. He does not have any chest pain, palpitations, shortness of breath. Review of Systems 2 Review of Systems: All systems reviewed & are unremarkable except as noted in HPI and below PMFSH Past Medical History Medical History Testicle cancer Cigarette nicotine dependence in remission GERD (gastroesophageal reflux disease) Pure hypercholesterolemia, unspecified Family History Family History Father Heart disease Mother Lung cancer Sibling Heart disease Colon cancer Social History Social History Smoking packs per day: 1.5 Smoking cigarettes per day: 30.0 Years smoked: 50 Smoking pack-years: 75.00 Smoking status: Former smoker Tobacco type: cigarettes Second hand tobacco smoke exposure: No Alcohol intake: never Drinks per week: 1 Substance use: never Substance use type: marijuana Other substance usage details: edibles or gummies Last use: 9 days ago or so Do You Feel Safe in your Home?: Yes Lack of Transportation: No Lack of Food: Never True Current Housing: I Have Housing Concerned About Future Housing: No Difficulty Paying Gas/Electric Bills: No Difficulty Paying for Meds: No Currently Unemployed: No Education: Bachelor's Degree Difficulty w/ Childcare or Family Care: No Living arrangements: alone Occupation/Education: retired Gender identity (if verbalized by the patient): Male Sexual Orientation (if Verbalized by the Patient): Straight or Heterosexual Spiritual care concerns: No Meds Home Medications and Allergies Home Medications ?Medication ?Instructions ?Recorded ?Confirmed ?Type vitamin B complex 1 tab-cap PO DAILY 10/07/22 09/20/24 History vitamin D3 25 mcg (1,000 unit)-vit 1 tablet PO DAILY 09/08/23 09/20/24 History K2 90 mcg disintegrating tablet melatonin 3 mg capsule 3 mg PO QHS 10/06/23 09/20/24 History omeprazole 40 mg capsule,delayed 40 mg PO BID #180 caps 08/04/24 09/20/24 Rx release vitamin K2 45 mcg capsule 45 mcg PO DAILY 09/20/24 09/20/24 History Allergies Allergy/AdvReac Type Severity Reaction Status Date / Time aspirin Allergy Unknown HIVES Verified 09/19/24 20:55 ibuprofen Allergy Unknown HIVES Verified 09/19/24 20:55 Vital Signs Vital Signs - 24 hr 09/19/24 21:00 09/19/24 21:06 09/19/24 21:41 Temperature 36.6 C Pulse Rate 93 149 H Respiratory Rate 20 16 Blood Pressure 97/73 L 131/11 L 133/81 Pulse Oximetry 99 100 Oxygen Delivery Room Air 09/19/24 21:51 09/19/24 23:30 09/20/24 00:45 Temperature Pulse Rate 141 H 141 H 99 Respiratory Rate Blood Pressure 116/81 Pulse Oximetry Oxygen Delivery 09/20/24 00:45 09/20/24 01:29 09/20/24 02:24 Temperature Pulse Rate 90 119 H 136 H Respiratory Rate 12 Blood Pressure 107/71 117/69 114/80 Pulse Oximetry 98 Oxygen Delivery 09/20/24 02:33 09/20/24 02:33 09/20/24 03:57 Temperature Pulse Rate 94 94 88 Respiratory Rate 13 17 Blood Pressure 106/64 103/79 Pulse Oximetry 98 99 Oxygen Delivery 09/20/24 04:19 09/20/24 05:25 09/20/24 05:59 Temperature 36.3 C L Pulse Rate 83 82 91 Respiratory Rate 14 16 Blood Pressure 105/66 92/56 L Pulse Oximetry 99 97 Oxygen Delivery 09/20/24 06:00 09/20/24 07:24 09/20/24 08:00 Temperature 36.4 C Pulse Rate 99 107 H 84 Respiratory Rate 16 Blood Pressure 96/63 L Pulse Oximetry 99 Oxygen Delivery 09/20/24 08:00 09/20/24 08:00 09/20/24 08:00 Temperature Pulse Rate 84 84 Respiratory Rate Blood Pressure 96/63 L Pulse Oximetry 99 Oxygen Delivery Room Air 09/20/24 08:40 09/20/24 10:00 09/20/24 10:00 Temperature 36.4 C L Pulse Rate 86 76 69 Respiratory Rate 20 Blood Pressure 85/61 L 85/61 L Pulse Oximetry 98 Oxygen Delivery 09/20/24 10:00 09/20/24 10:48 09/20/24 12:00 Temperature 36.7 C Pulse Rate 75 72 64 Respiratory Rate 12 Blood Pressure 90/56 L Pulse Oximetry 99 Oxygen Delivery 09/20/24 12:00 09/20/24 12:00 Temperature Pulse Rate 74 Respiratory Rate Blood Pressure Pulse Oximetry 98 Oxygen Delivery Room Air Exam 2 Const: General: comfortable, no acute distress, alert and awake O rientation/consciousness: patient oriented x3 HENMT: Head: normal to inspection Eyes: General: appearance normal, both eyes and all related structures P upils: Equal, round and reactive pupils present Neck: Neck: normal visual inspection, supple and no JVD Carotids: normal carotid upstroke Resp: Effort & Inspection: normal respiratory effort Auscultation: crackles Cardio: Rate: regular rate Rhythm: abnormal rhythm irregularly irregular Heart sounds: S1 normal heart sound present, S2 normal heart sound present and no murmurs GI: Auscultation: normal bowel sounds Skin: General skin exam: normal color Neuro: General: patient oriented x3 Cranial nerves: Yes Equal, round and reactive pupils present Extrem: General: normal to inspection Psych: Appearance: grossly normal Mental Status: mental status grossly normal Results Labs and Meds 09/19/24 22:02 09/20/24 04:37 Lab results: Cardiac Enzymes 09/19/24 09/20/24 09/20/24 Range/Units 22:02 01:17 04:37 AST 34 34 (17-59) U/L Troponin I < 0.012 < 0.012 (0.000-0.034) ng/mL CBC 09/19/24 Range/Units 22:02 WBC 4.3 L (4.5-10.0) K/mm3 RBC 4.04 L (4.6-6.20) M/mm3 Hgb 13.5 L (14.0-18.0) g/dL Hct 40.6 L (42.0-52.0) % Plt Count 257 (150-375) k/mm3 Lymph # (Auto) 1.47 (0.9-3.2) K/mm3 [place] # (Auto) 0.6 (0.1-0.6) K/mm3 Eos # (Auto) 0.0 (0-0.3) K/mm3 Baso # (Auto) 0.0 (0.0-0.1) K/mm3 Comprehensive Metabolic Panel 09/19/24 09/20/24 09/20/24 Range/Units 22:02 01:17 01:33 Sodium 136 L (137-145) mmol/L Potassium 4.2 (3.4-5.0) mmol/L Chloride 100 (98-107) mmol/L Carbon Dioxide 19 L (22-30) mmol/L BUN 13 (9-20) mg/dL Creatinine 1.25 1.30 (0.7-1.3) mg/dL Glucose 106 (65-110) mg/dL Calcium 9.1 (8.4-10.2) mg/dL Direct Bilirubin 0.0 (0-0.3) mg/dL AST 34 34 (17-59) U/L ALT 25 25 (6-50) U/L Alkaline Phosphatase 83 75 (38-126) U/L Total Protein 7.0 6.0 L (6.3-8.2) g/dL Albumin 4.0 3.6 (3.5-5.1) g/dL 09/20/24 Range/Units 04:37 Sodium 135 L (137-145) mmol/L Potassium 3.9 (3.4-5.0) mmol/L Chloride 102 (98-107) mmol/L Carbon Dioxide 21 L (22-30) mmol/L BUN 12 (9-20) mg/dL Creatinine 1.07 (0.7-1.3) mg/dL Glucose 86 (65-110) mg/dL Calcium 8.2 L (8.4-10.2) mg/dL Direct Bilirubin (0-0.3) mg/dL AST (17-59) U/L ALT (6-50) U/L Alkaline Phosphatase (38-126) U/L Total Protein (6.3-8.2) g/dL Albumin (3.5-5.1) g/dL Intake and Output 09/19/24 09/20/24 09/20/24 23:59 07:59 15:59 Intake Total 1016.8 189.2 Output Total 450 Balance 1016.8 -260.8 Intake: IV 1016.8 89.2 Sodium Chloride 0.9% IV 1,000 1000 ml @ 0 mls/hr .ROUTE .STK-MED ONE Rx#:[id number] dilTIAZem 100 MG/100 ML 100 mg 16.8 89.2 In 100 ml @ 5 MG/HR 5 mls/hr IV CONT .Q20H STA Rx#:[id number] Oral 100 Output: Urine 450
--- NOTE | 2024-09-20 15:32 | PM.IMPN ---
Progress Note: A&P Assessment and Plan (1) Atrial fibrillation with RVR: Code(s): I48.91 - Unspecified atrial fibrillation Status: Acute (2) Dehydration: Code(s): E86.0 - Dehydration Status: Acute (3) GERD (gastroesophageal reflux disease): Qualifiers: Esophagitis presence: esophagitis presence not specified Qualified Code(s): K21.9 - Gastro-esophageal reflux disease without esophagitis Code(s): K21.9 - Gastro-esophageal reflux disease without esophagitis Status: Acute (4) Gastritis: Code(s): K29.70 - Gastritis, unspecified, without bleeding Status: Acute Plan 79-year-old male with past medical history GERD, hypocholesterolemia presents with abdominal pain over past several days. He also reports he was diagnosed with COVID about a week [employer] and started on Paxlovid. However he lost his appetite afterwards. In [facility] ER he was found to be in atrial fibrillation with RVR with rate in the 150s. This is new diagnosis. Anion gap 17. Troponin negative. TSH within normal limits. CTA chest abdomen negative for any significant acute finding. He received diltiazem 10 mg IV x1, Zofran 4 mg IV x1, then placed on a diltiazem GTT at 10 milligrams/hour. Placed on normal saline infusion at 125 cc/hour. ----- Upon reexamination in the ER the patient was resting comfortably. CT abdomen pelvis not demonstrate acute findings in the GI tract. Lipase normal. History of GERD, takes omeprazole at home. Start Protonix 40 mg IV Q 24 hours. Monitor for symptom resolution. Diltiazem at 10 milligrams/hour his rate currently steady in the 70s. Blood pressure acceptable. Order placed to decrease at 5 milligrams/hour. TSH within normal limits. Start metoprolol 25 mg p.o. b.i.d.. 2D echocardiogram ordered. He is dehydrated, continue normal saline for now. Received Lovenox 60 mg subQ. Check lactic acid repeat BMP. Elevated anion gap likely due to starvation ketosis. patient with new onset Atrial Fibrillation was started on Diltiazem drip and was given metoprolol 25mg BID, his rate is trending down and BP was getting soft, stopped diltiazem, his rate is controlled with metoprolol, patient is anticoagulated with Lovenox, patient was recently diagnosed with COVID 19 9 days ago was taking Paxlovid upon arrival, stated has poor appetite and poor PO intake led to dehydration and soft blood pressure, patient is being hydrated, patient abdomen pain, CT of abdomen is negative any acute pathology. Repeat COVID 19 test is positive and patient is in isolation. patient will be seen by bicycle taxi driver and further recommendation to follow. ----- SCDs. Full code. Normal saline infusion. Subjective Date/time seen: 09/20/24 15:32 Interval history: Abdominal pain H&P-Narrative: 79-year-old male with past medical history GERD, hypocholesterolemia presents with abdominal pain over past several days. He also reports he was diagnosed with COVID about a week [employer] and started on Paxlovid. However he lost his appetite afterwards. In [facility] ER he was found to be in atrial fibrillation with RVR with rate in the 150s. This is new diagnosis. Anion gap 17. Troponin negative. TSH within normal limits. CTA chest abdomen negative for any significant acute finding. He received diltiazem 10 mg IV x1, Zofran 4 mg IV x1, then placed on a diltiazem GTT at 10 milligrams/hour. Placed on normal saline infusion at 125 cc/hour. patient with new onset Atrial Fibrillation was started on Diltiazem drip and was given metoprolol 25mg BID, his rate is trending down and BP was getting soft, stopped diltiazem, his rate is controlled with metoprolol, patient is anticoagulated with Lovenox, patient was recently diagnosed with COVID 19 9 days ago was taking Paxlovid upon arrival, stated has poor appetite and poor PO intake led to dehydration and soft blood pressure, patient is being hydrated, patient abdomen pain, CT of abdomen is negative any acute pathology. Repeat COVID 19 test is positive and patient is in isolation. patient will be seen by bicycle taxi driver and further recommendation to follow. Review of Systems Review of Systems: All systems reviewed & are unremarkable except as noted in HPI and below (HPI) Exam Narrative: Patient is comfortable, NAD HEENT: eyes are clear and none icteric LUNGS:CTA HEART: Irregularly irregular ABD: BS+, Soft and nontender Lower extremities: no edema SKIN: nonjaundiced Neuro: grossly intact. Objective Data Vital Signs Vital Signs: Vital Signs - 24 hr 09/19/24 21:00 09/19/24 21:06 09/19/24 21:41 Temperature 36.6 C Pulse Rate 93 149 H Respiratory Rate 20 16 Blood Pressure 97/73 L 131/11 L 133/81 Pulse Oximetry 99 100 Oxygen Delivery Room Air 09/19/24 21:51 09/19/24 23:30 09/20/24 00:45 Temperature Pulse Rate 141 H 141 H 99 Respiratory Rate Blood Pressure 116/81 Pulse Oximetry Oxygen Delivery 09/20/24 00:45 09/20/24 01:29 09/20/24 02:24 Temperature Pulse Rate 90 119 H 136 H Respiratory Rate 12 Blood Pressure 107/71 117/69 114/80 Pulse Oximetry 98 Oxygen Delivery 09/20/24 02:33 09/20/24 02:33 09/20/24 03:57 Temperature Pulse Rate 94 94 88 Respiratory Rate 13 17 Blood Pressure 106/64 103/79 Pulse Oximetry 98 99 Oxygen Delivery 09/20/24 04:19 09/20/24 05:25 09/20/24 05:59 Temperature 36.3 C L Pulse Rate 83 82 91 Respiratory Rate 14 16 Blood Pressure 105/66 92/56 L Pulse Oximetry 99 97 Oxygen Delivery 09/20/24 06:00 09/20/24 07:24 09/20/24 08:00 Temperature 36.4 C Pulse Rate 99 107 H 84 Respiratory Rate 16 Blood Pressure 96/63 L Pulse Oximetry 99 Oxygen Delivery 09/20/24 08:00 09/20/24 08:00 09/20/24 08:00 Temperature Pulse Rate 84 84 Respiratory Rate Blood Pressure 96/63 L Pulse Oximetry 99 Oxygen Delivery Room Air 09/20/24 08:40 09/20/24 10:00 09/20/24 10:00 Temperature 36.4 C L Pulse Rate 86 76 69 Respiratory Rate 20 Blood Pressure 85/61 L 85/61 L Pulse Oximetry 98 Oxygen Delivery 09/20/24 10:00 09/20/24 10:48 09/20/24 12:00 Temperature 36.7 C Pulse Rate 75 72 64 Respiratory Rate 12 Blood Pressure 90/56 L Pulse Oximetry 99 Oxygen Delivery 09/20/24 12:00 09/20/24 12:00 09/20/24 14:00 Temperature Pulse Rate 74 89 Respiratory Rate Blood Pressure Pulse Oximetry 98 Oxygen Delivery Room Air Intake/Output Intake/Output: Intake & Output 09/17/24 09/18/24 09/19/24 09/20/24 23:59 23:59 23:59 23:59 Intake Total 1206.0 Output Total 450 Balance 756.0 Meds/Results Medications: Active Medications Generic Name Dose Route Start Last Admin Trade Name Freq PRN Reason Stop Dose Admin Apixaban 5 mg 09/20/24 21:00 Apixaban 5 Mg Tablet PO Q12HR ANDRZEJ Diltiazem HCl 100 mg in 100 mls @ 5 mls/hr 09/20/24 01:24 09/20/24 10:48 Cardizem 100 Mg/100 Ml IV CONT 09/20/24 21:23 Infused .Q20H STA Infusion 5 MG/HR Sodium Chloride 1,000 mls @ 125 mls/hr 09/20/24 04:55 09/20/24 06:53 Normal Saline Iv IV CONT 125 mls/hr .Q8H ANDRZEJ Administration Melatonin 3 mg 09/20/24 21:00 Melatonin 3 Mg Tablet PO QHS ANDRZEJ Metoprolol Tartrate 25 mg 09/20/24 21:00 Metoprolol Tartrate 25 Mg Tablet PO Q12HR ANDRZEJ Non-Formulary Medication 1 each 09/20/24 11:16 Nonformulary Nutritional Supplement XX 09/21/24 11:15 PRN PRN PROTOCOL Ondansetron HCl 4 mg 09/20/24 04:53 Ondansetron Inj 4 Mg/2 Ml Vial IV PUSH Q4H PRN Nausea Pantoprazole Sodium 40 mg 09/20/24 05:55 09/20/24 06:56 Pantoprazole Sodium Iv 40 Mg Vial IV PUSH 40 mg QAM ANDRZEJ Administration Pantoprazole Sodium 40 mg 09/20/24 21:00 Pantoprazole 40 Mg Tablet PO Q12HR ANDRZEJ Perflutren Lipid Microsphere 0 ml 09/20/24 05:48 Perflutren Lipid Microspheres 1.5 Ml Vial Diluted To 10 Ml Total Volume IV PUSH 09/23/24 05:48 ONCE PRN adequate visualization Protocol Simethicone 125 mg 09/20/24 10:46 09/20/24 11:26 Simethicone 125 Mg Chew Tab PO 125 mg QID PRN Administration Abdominal Cramping Vitamin B Complex 1 cap 09/21/24 09:00 Vitamin B Complex Capsule PO QAM ANDRZEJ Vitamin D 1,000 units 09/21/24 09:00 Cholecalciferol 1,000 Units Tablet PO DAILY [facility] Radiology Results: ITS Impressions Chest/Abdomen/Pelvis CTA 09/20/24 05:28 Impression: Mild emphysema. Probable focal atelectatic change or scarring at the anterior lingula. Pneumonia less likely. No significant abnormality in the abdomen or pelvis. Labs Labs: Laboratory Results - last 24 hr 09/19/24 09/19/24 09/19/24 22:01 22:02 22:12 WBC 4.3 L RBC 4.04 L Hgb 13.5 L Hct 40.6 L MCV 100.5 H MCH 33.4 MCHC 33.3 RDW 11.8 Plt Count 257 MPV 11.2 H Immature Gran % (Auto) 0.0 Neut % (Auto) 51.3 Lymph % (Auto) 34.5 [place] % (Auto) 13.8 H Eos % (Auto) 0.2 Baso % (Auto) 0.2 Lymph # (Auto) 1.47 [place] # (Auto) 0.6 Eos # (Auto) 0.0 Baso # (Auto) 0.0 Abs Immat Gran (auto) 0.00 Absolute Neuts (auto) 2.2 Absolute Nucleated RBC 0.000 Nucleated RBC % 0.0 Puncture Site ABG pH ABG pCO2 ABG pO2 ABG PO2/FiO2 Ratio ABG HCO3 ABG O2 Saturation ABG O2 Content ABG Base Excess A-a Gradient Oxyhemoglobin Total Hemoglobin O2 Delivery Device O2 Liters/Min FiO2 Sodium 136 L Potassium 4.2 Chloride 100 Carbon Dioxide 19 L Anion Gap 17 H BUN 13 Creatinine 1.25 Estim Creat Clear Calc 38 Estimated GFR 56 L Glucose 106 Lactic Acid Calcium 9.1 Phosphorus 3.0 Magnesium 1.9 Total Bilirubin 0.8 Direct Bilirubin AST 34 ALT 25 Alkaline Phosphatase 83 Troponin I NT-Pro-B Natriuret Pep Total Protein 7.0 Albumin 4.0 Lipase 118 TSH (Reflex) Urine Color Dark yellow Urine Appearance Cloudy H Urine pH 5.5 Ur Specific [place] 1.024 Urine Protein 1+ H Urine Glucose (UA) Negative Urine Ketones 2+ H Ur Blood (Man) Negative Urine Nitrate Negative Urine Bilirubin Negative Urine Urobilinogen 1.0 Add Ur Microanalysis Reviewed Leukocyte Esterase Rfl Negative Urine RBC 0-2 Urine WBC 0-5 Ur Squamous Epith Cells None seen Urine Bacteria None seen Urine Casts 6-10 Urine Mucus Present Influenza A (RT-PCR) Influenza B (RT-PCR) RSV (RT-PCR) SARS-CoV-2 RNA (RT-PCR) 09/20/24 09/20/24 09/20/24 01:17 01:33 04:37 WBC RBC Hgb Hct MCV MCH MCHC RDW Plt Count MPV Immature Gran % (Auto) Neut % (Auto) Lymph % (Auto) [place] % (Auto) Eos % (Auto) Baso % (Auto) Lymph # (Auto) [place] # (Auto) Eos # (Auto) Baso # (Auto) Abs Immat Gran (auto) Absolute Neuts (auto) Absolute Nucleated RBC Nucleated RBC % Puncture Site ABG pH ABG pCO2 ABG pO2 ABG PO2/FiO2 Ratio ABG HCO3 ABG O2 Saturation ABG O2 Content ABG Base Excess A-a Gradient Oxyhemoglobin Total Hemoglobin O2 Delivery Device O2 Liters/Min FiO2 Sodium 135 L Potassium 3.9 Chloride 102 Carbon Dioxide 21 L Anion Gap 12 BUN 12 Creatinine 1.30 1.07 Estim Creat Clear Calc 36 44 Estimated GFR 54 L > 60 Glucose 86 Lactic Acid Calcium 8.2 L Phosphorus Magnesium 1.9 Total Bilirubin 0.7 Direct Bilirubin 0.0 AST 34 ALT 25 Alkaline Phosphatase 75 Troponin I < 0.012 < 0.012 NT-Pro-B Natriuret Pep 948 H Total Protein 6.0 L Albumin 3.6 Lipase TSH (Reflex) 1.900 Urine Color Urine Appearance Urine pH Ur Specific [place] Urine Protein Urine Glucose (UA) Urine Ketones Ur Blood (Man) Urine Nitrate Urine Bilirubin Urine Urobilinogen Add Ur Microanalysis Leukocyte Esterase Rfl Urine RBC Urine WBC Ur Squamous Epith Cells Urine Bacteria Urine Casts Urine Mucus Influenza A (RT-PCR) Influenza B (RT-PCR) RSV (RT-PCR) SARS-CoV-2 RNA (RT-PCR) 09/20/24 09/20/24 09/20/24 06:48 11:59 12:59 WBC RBC Hgb Hct MCV MCH MCHC RDW Plt Count MPV Immature Gran % (Auto) Neut % (Auto) Lymph % (Auto) [place] % (Auto) Eos % (Auto) Baso % (Auto) Lymph # (Auto) [place] # (Auto) Eos # (Auto) Baso # (Auto) Abs Immat Gran (auto) Absolute Neuts (auto) Absolute Nucleated RBC Nucleated RBC % Puncture Site Left radial ABG pH 7.442 ABG pCO2 29.6 L ABG pO2 96.9 ABG PO2/FiO2 Ratio 4.61 ABG HCO3 19.7 L ABG O2 Saturation 97.7 ABG O2 Content 18.1 ABG Base Excess -3.2 A-a Gradient 17.4 Oxyhemoglobin 97.1 Total Hemoglobin 13.2 O2 Delivery Device Room air O2 Liters/Min Not Reportable FiO2 21 Sodium Potassium Chloride Carbon Dioxide Anion Gap BUN Creatinine Estim Creat Clear Calc Estimated GFR Glucose Lactic Acid 1.1 Calcium Phosphorus Magnesium Total Bilirubin Direct Bilirubin AST ALT Alkaline Phosphatase Troponin I NT-Pro-B Natriuret Pep Total Protein Albumin Lipase TSH (Reflex) Urine Color Urine Appearance Urine pH Ur Specific [place] Urine Protein Urine Glucose (UA) Urine Ketones Ur Blood (Man) Urine Nitrate Urine Bilirubin Urine Urobilinogen Add Ur Microanalysis Leukocyte Esterase Rfl Urine RBC Urine WBC Ur Squamous Epith Cells Urine Bacteria Urine Casts Urine Mucus Influenza A (RT-PCR) Negative Influenza B (RT-PCR) Negative RSV (RT-PCR) Negative SARS-CoV-2 RNA (RT-PCR) Positive A
[2024-09-20] MEDS: PANTOPRAZOLE 40 MG TABLET PO (20:05)
[2024-09-20] MEDS: APIXABAN 5 MG TABLET PO (20:05)
[2024-09-20] MEDS: MELATONIN 3 MG TABLET PO (20:05)
[2024-09-21] VITALS (16 sets, daily range): BP systolic 92–111; BP diastolic 59–80; PULSE 79–111; RESP 17–20; TEMP 36.3–36.6; O2SAT 97–100
[2024-09-21] MEDS: SODIUM CHLORIDE 0.9% IV 1,000 ML 125 ML IV CONT ×2 (02:07→11:10)
[2024-09-21 05:14] LABS: Hematocrit 35.8 % (42.0-52.0); Hemoglobin 11.7 g/dL (14.0-18.0); Mean Corpuscular HGB Conc 32.7 g/dl (32-36); Mean Corpuscular Hemoglobin 33.2 pg (26-34); Mean Corpuscular Volume 101.7 fl (80-100); Mean Platelet Volume 10.5 fl (7.4-10.4); Platelet Count Result 183 k/mm3 (150-375); Red Blood Count 3.52 M/mm3 (4.6-6.20); Red Cell Distribution Width 11.8 % (11.5-14.5)
[2024-09-21 05:22] LABS: Anion Gap 6 mmol/L (4-12); Blood Urea Nitrogen 12 mg/dL (9-20); Calcium 8.1 mg/dL (8.4-10.2); Carbon Dioxide 22 mmol/L (22-30); Chloride 109 mmol/L (98-107); Estimated CRCL calculation 46 ml/min; Estimated Glomerular Filt Rate > 60; Glucose 88 mg/dL (65-110); Magnesium 1.9 mg/dL (1.6-2.3); Potassium 3.6 mmol/L (3.4-5.0); Sodium 137 mmol/L (137-145)
[2024-09-21] MEDS: SIMETHICONE 125 MG CHEW TAB PO ×2 (06:55→15:04)
--- NOTE | 2024-09-21 07:26 | PC.NURSE ---
Pt complains of 10/10 mid to right sided abdominal pain. Unable to articulate the characteristics of pain. Explains pain is exacerbated by eating but usually tapers off. Is now constant and severe. Laying on left side provides a small amount of relief. Denies nausea or vomiting. Reports this is the same pain that he had when he came to the ER. Detailed message left with Dr. Walker.
--- NOTE | 2024-09-21 07:49 | P.PNIM_ITS ---
Progress Note: A&P Assessment and Plan (1) Atrial fibrillation with RVR: Code(s): I48.91 - Unspecified atrial fibrillation Status: Acute (2) Dehydration: Code(s): E86.0 - Dehydration Status: Acute (3) GERD (gastroesophageal reflux disease): Qualifiers: Esophagitis presence: esophagitis presence not specified Qualified Code(s): K21.9 - Gastro-esophageal reflux disease without esophagitis Code(s): K21.9 - Gastro-esophageal reflux disease without esophagitis Status: Acute (4) Gastritis: Code(s): K29.70 - Gastritis, unspecified, without bleeding Status: Acute Plan A.Fib New onset. TSH normal Denies alcoholism, drug abuse, excessive caffeine intake. ECHO: Left ventricular systolic function is normal, estimated at 60-65%. [id number] 3 and started of Eliquis 5 mg PO BID Order HbA1c and Lipid Panel S/P Diltiazem drip and Metoprolol Tartarte 25 mg PO BID Abdominal pian/GERD CTA chest/abdomen/pelvis:Mild emphysema.Probable focal atelectatic change or scarring at the anterior lingula. Pneumonia less likely. No significant abnormality in the abdomen or pelvis. CT abdomen/pelvis GI consulted EGD: 10/29/2023 (Dr. Hopper) for GERD Findings: The esophagus was examined mucosa was normal with normal Z-line and no ulcers or masses. No Carr's, no obvious esophagitis, no hernia. Multiple biopsies were taken from the lower 3rd esophagus. The Z-line was located 46 cm from the incisors The stomach at the body, cardia and fundus was examined and was normal with no ulcers or masses. No obvious gastritis. Multiple biopsies were taken. The bulb and 2nd portion of the duodenum was normal with no ulcers or masses Bx results: A. 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 B. Esophagus, biopsies: - Benign stratified squamous epithelium - No evidence of esophagitis - No gastric mucosa present COLONOSCOPY: 10/23/2022 (Dr. Coreas) for personal and family history of colon polyps findings: There were 2 small sessile polyps observed in the ascending colon. There was no bleeding. The appearance seen benign in nature. Multiple hot snare polypectomies were performed. The polyps were completely excised and retrieved. There were 2 medium sessile polyps observed in the descending colon. There was no bleeding. The appearance seen benign in nature. Multiple hot snare polypectomies were performed. The polyps were completely excised and retrieved Multiple small size uncomplicated internal hemorrhoids seen in the rectum. The hemorrhoids were not actively bleeding 3 year repeat colonoscopy recommended Bx results: Ascending colon polyp, polypectomy (A): - Tubular adenoma Descending colon polyp, polypectomy (B): - Tubular adenoma Subjective Date/time seen: 09/21/24 07:50 Interval history: Abdominal pain H&P-Narrative: 79-year-old male with past medical history GERD, hypocholesterolemia presents with abdominal pain over past several days. He also reports he was diagnosed with COVID about a week [employer] and started on Paxlovid. However he lost his appetite afterwards. In [facility] he was found to be in atrial fibrillation with RVR with rate in the 150s. This is new diagnosis. Anion gap 17. Troponin negative. TSH within normal limits. CTA chest abdomen negative for any significant acute finding. He received diltiazem 10 mg IV x1, Zofran 4 mg IV x1, then placed on a diltiazem GTT at 10 milligrams/hour. Placed on normal saline infusion at 125 cc/hour. Patient with new onset Atrial Fibrillation was started on Diltiazem drip and was given metoprolol 25mg BID, his rate is trending down and BP was getting soft, stopped diltiazem, his rate is controlled with metoprolol, patient is anticoagulated with Lovenox.Repeat COVID 19 test is positive and patient is in isolation. Cardiology evaluated the patient and started the patient on metoprolol 25 mg b.i.d. and titrate if needed. And also started on Eliquis 5 mg p.o. b.i.d.. If the patient remains in atrial fibrillation cardiology plans for outpatient cardioversion after he has been anticoagulated at least for 4-6 weeks. 09/21: Patient complains of severe abdominal pain. Ordered status CT scan abdomen pelvis. Consult GI. Exam Narrative: Patient is comfortable, NAD HEENT: eyes are clear and none icteric LUNGS:CTA HEART: Irregularly irregular ABD: BS+, Soft and nontender Lower extremities: no edema SKIN: nonjaundiced Neuro: grossly intact. Const: General: comfortable and no acute distress Other: A&O x3 HENMT: Mouth: Yes dry mucous membranes Eyes: Pupils: Equal, round and reactive pupils present Neck: Neck: supple Resp: Effort & Inspection: normal respiratory effort Auscultation: clear to auscultation bilaterally Cardio: Rate: regular rate Rhythm: abnormal rhythm Heart sounds: no gallops, no murmurs and no rubs : General: Yes bladder normal to palpation Neuro: Cranial nerves: Yes Equal, round and reactive pupils present Extrem: General: no edema Objective Data Vital Signs Vital Signs: Vital Signs - 24 hr 09/20/24 08:00 09/20/24 08:00 09/20/24 08:00 Temperature 97.6 F Pulse Rate 84 84 84 Respiratory Rate 16 Blood Pressure 96/63 L 96/63 L Pulse Oximetry 99 Oxygen Delivery 09/20/24 08:00 09/20/24 08:40 09/20/24 10:00 Temperature 97.5 F L Pulse Rate 86 76 Respiratory Rate 20 Blood Pressure 85/61 L Pulse Oximetry 99 98 Oxygen Delivery Room Air 09/20/24 10:00 09/20/24 10:00 09/20/24 10:48 Temperature Pulse Rate 69 75 72 Respiratory Rate Blood Pressure 85/61 L Pulse Oximetry Oxygen Delivery 09/20/24 12:00 09/20/24 12:00 09/20/24 12:00 Temperature 98.0 F Pulse Rate 64 74 Respiratory Rate 12 Blood Pressure 90/56 L Pulse Oximetry 99 98 Oxygen Delivery Room Air 09/20/24 14:00 09/20/24 16:00 09/20/24 16:00 Temperature Pulse Rate 89 76 Respiratory Rate Blood Pressure Pulse Oximetry 98 Oxygen Delivery Room Air 09/20/24 16:00 09/20/24 18:00 09/20/24 19:48 Temperature 97.5 F L 97.5 F L Pulse Rate 72 87 80 Respiratory Rate 16 17 Blood Pressure 98/62 L 101/64 Pulse Oximetry 100 98 Oxygen Delivery 09/20/24 20:00 09/20/24 20:06 09/20/24 22:00 Temperature Pulse Rate 84 79 77 Respiratory Rate Blood Pressure Pulse Oximetry Oxygen Delivery 09/21/24 00:00 09/21/24 00:00 09/21/24 02:00 Temperature 97.8 F Pulse Rate 80 79 79 Respiratory Rate 18 Blood Pressure 98/61 L Pulse Oximetry 100 Oxygen Delivery 09/21/24 04:00 09/21/24 04:00 09/21/24 06:00 Temperature Pulse Rate 79 95 83 Respiratory Rate 17 Blood Pressure 111/80 Pulse Oximetry 98 Oxygen Delivery Intake/Output Intake/Output: Intake & Output 09/18/24 09/19/24 09/20/24 09/21/24 23:59 23:59 23:59 23:59 Intake Total 2576.0 1000 Output Total 850 650 Balance 1726.0 350 Meds/Results Medications: Active Medications Generic Name Dose Route Start Last Admin Trade Name Freq PRN Reason Stop Dose Admin Apixaban 5 mg 09/20/24 21:00 09/20/24 20:05 Apixaban 5 Mg Tablet PO 5 mg Q12HR ANDRZEJ Administration Sodium Chloride 1,000 mls @ 125 mls/hr 09/20/24 04:55 09/21/24 02:07 Normal Saline Iv IV CONT 125 mls/hr .Q8H ANDRZEJ Administration Melatonin 3 mg 09/20/24 21:00 09/20/24 20:05 Melatonin 3 Mg Tablet PO 3 mg QHS ANDRZEJ Administration Metoprolol Tartrate 25 mg 09/20/24 21:00 09/20/24 20:06 Metoprolol Tartrate 25 Mg Tablet PO 25 mg Q12HR ANDRZEJ Administration Morphine Sulfate 2 mg 09/21/24 07:47 Morphine Sulfate (*Crx) 2 Mg/Ml Inj IV PUSH 09/21/24 07:48 ONCE ONE Non-Formulary Medication 1 each 09/20/24 11:16 Nonformulary Nutritional Supplement XX 09/21/24 11:15 PRN PRN PROTOCOL Ondansetron HCl 4 mg 09/20/24 04:53 Ondansetron Inj 4 Mg/2 Ml Vial IV PUSH Q4H PRN Nausea Pantoprazole Sodium 40 mg 09/20/24 05:55 09/20/24 06:56 Pantoprazole Sodium Iv 40 Mg Vial IV PUSH 40 mg QAM ANDRZEJ Administration Pantoprazole Sodium 40 mg 09/20/24 21:00 09/20/24 20:05 Pantoprazole 40 Mg Tablet PO 40 mg Q12HR ANDRZEJ Administration Perflutren Lipid Microsphere 0 ml 09/20/24 05:48 Perflutren Lipid Microspheres 1.5 Ml Vial Diluted To 10 Ml Total Volume IV PUSH 09/23/24 05:48 ONCE PRN adequate visualization Protocol Simethicone 125 mg 09/20/24 10:46 09/21/24 06:55 Simethicone 125 Mg Chew Tab PO 125 mg QID PRN Administration Abdominal Cramping Vitamin B Complex 1 cap 09/21/24 09:00 Vitamin B Complex Capsule PO QAM [facility] Vitamin D 1,000 units 09/21/24 09:00 Cholecalciferol 1,000 Units Tablet PO DAILY [facility] Radiology Results: ITS Impressions Chest/Abdomen/Pelvis CTA 09/20/24 05:28 Impression: Mild emphysema. Probable focal atelectatic change or scarring at the anterior lingula. Pneumonia less likely. No significant abnormality in the abdomen or pelvis. Labs Labs: Laboratory Results - last 24 hr 09/20/24 09/20/24 09/20/24 04:37 11:59 12:59 WBC RBC Hgb Hct MCV MCH MCHC RDW Plt Count MPV Puncture Site Left radial ABG pH 7.442 ABG pCO2 29.6 L ABG pO2 96.9 ABG PO2/FiO2 Ratio 4.61 ABG HCO3 19.7 L ABG O2 Saturation 97.7 ABG O2 Content 18.1 ABG Base Excess -3.2 A-a Gradient 17.4 Oxyhemoglobin 97.1 Total Hemoglobin 13.2 O2 Delivery Device Room air O2 Liters/Min Not Reportable FiO2 21 Sodium Potassium Chloride Carbon Dioxide Anion Gap BUN Creatinine Estim Creat Clear Calc Estimated GFR Glucose Calcium Magnesium 1.9 NT-Pro-B Natriuret Pep 948 H Influenza A (RT-PCR) Negative Influenza B (RT-PCR) Negative RSV (RT-PCR) Negative SARS-CoV-2 RNA (RT-PCR) Positive A 09/21/24 04:33 WBC 3.0 L RBC 3.52 L Hgb 11.7 L Hct 35.8 L MCV 101.7 H MCH 33.2 MCHC 32.7 RDW 11.8 Plt Count 183 MPV 10.5 H Puncture Site ABG pH ABG pCO2 ABG pO2 ABG PO2/FiO2 Ratio ABG HCO3 ABG O2 Saturation ABG O2 Content ABG Base Excess A-a Gradient Oxyhemoglobin Total Hemoglobin O2 Delivery Device O2 Liters/Min FiO2 Sodium 137 Potassium 3.6 Chloride 109 H Carbon Dioxide 22 Anion Gap 6 BUN 12 Creatinine 1.01 Estim Creat Clear Calc 46 Estimated GFR > 60 Glucose 88 Calcium 8.1 L Magnesium 1.9 NT-Pro-B Natriuret Pep Influenza A (RT-PCR) Influenza B (RT-PCR) RSV (RT-PCR) SARS-CoV-2 RNA (RT-PCR) Hospitalist MIPS Advance Care Plan I have confirmed that the patient's Advanced Care Plan is present, code status is documented, or surrogate decision maker is listed in patient medical record.: Yes Medication Reconciliation I have utilized all available resources to obtain, update and review the patients current medications (includes all prescriptions, OTC, herbals, cannabis, and nutritional supplements).: Yes
[2024-09-21] MEDS: MORPHINE SULFATE (*CRX) 2 MG/ML INJ IV PUSH (07:56)
[2024-09-21] MEDS: ONDANSETRON INJ 4 MG/2 ML VIAL IV PUSH (08:04)
[2024-09-21] MEDS: BELLADONNA ALK/PHENOB ELIX 10 ML, MAG HYDROX/ALUMINUM HYD/SIMETH 30 ML, LIDOCAINE 2% VI... PO (09:55)
[2024-09-21] MEDS: CHOLECALCIFEROL 1,000 UNITS TABLET 1000 UNITS PO (09:56)
[2024-09-21] MEDS: PANTOPRAZOLE 40 MG TABLET PO ×2 (09:56→20:08)
[2024-09-21] MEDS: VITAMIN B COMPLEX CAPSULE 1 CAP PO (09:56)
[2024-09-21] MEDS: METOPROLOL TARTRATE 25 MG TABLET PO (09:57)
[2024-09-21] MEDS: APIXABAN 5 MG TABLET PO ×2 (09:57→20:08)
[2024-09-21 12:00] LABS: Lipase 130 U/L (23-300)
[2024-09-21 12:10] LABS: Troponin I < 0.012 ng/mL (0.000-0.034)
--- NOTE | 2024-09-21 13:19 | PM.PNCARD ---
Progress Note: A&P Assessment and Plan (1) Atrial fibrillation with RVR: Code(s): I48.91 - Unspecified atrial fibrillation Status: Acute Assessment and Plan: This is a new diagnosis. Chronicity is unknown. Echocardiogram with preserved LVEF. Increase Metoprolol to 50mg BID given RVR with activity. He has a CHADS2 Vasc score of 2. Anticoagulation is indicated. Started Eliquis 5mg BID. If he remains in atrial fibrillation, we will plan for outpatient cardioversion after he has been anticoagulated for at least 4-6 weeks. Subjective Date/time seen: 09/21/24 13:19 Interval history: Reason for visit: Atrial fibrillation with RVR HPI: Pablo White is a 79 year old male with history of GERD and hyperlipidemia. This is a patient who comes to the hospital with loss of appetite. He was diagnosed with COVID about a week ago and was prescribed Paxil of id and since that time has not had much of an appetite. He came to the emergency room because of this and was found to be in atrial fibrillation with rapid ventricular response. This is a new diagnosis for the patient. He was placed on a diltiazem drip and started on oral metoprolol. He became hypotensive, therefore the diltiazem drip was stopped he remains on metoprolol. His heart rate is well controlled. He does not have any chest pain, palpitations, shortness of breath. Date of service 09/21: AFIB is rate controlled at rest, however, heart rate increases to 120s-130s with activity. Having stomach pains this morning. Review of Systems Cardiovascular: Cardiovascular: Reports as per HPI Exam Const: General: no acute distress Eyes: General: appearance normal, both eyes and all related structures Sclera: sclerae normal Resp: Effort & Inspection: normal respiratory effort Cardio: Rhythm: abnormal rhythm irregularly irregular Neuro: Speech: normal speech Psych: Mental Status: mental status grossly normal Affect: normal affect Objective Data Vital Signs Vital Signs: Vital Signs - 24 hr 09/20/24 14:00 09/20/24 16:00 09/20/24 16:00 Temperature Pulse Rate 89 76 Respiratory Rate Blood Pressure Pulse Oximetry 98 Oxygen Delivery Room Air 09/20/24 16:00 09/20/24 18:00 09/20/24 19:48 Temperature 36.4 C L 36.4 C L Pulse Rate 72 87 80 Respiratory Rate 16 17 Blood Pressure 98/62 L 101/64 Pulse Oximetry 100 98 Oxygen Delivery 09/20/24 20:00 09/20/24 20:06 09/20/24 22:00 Temperature Pulse Rate 84 79 77 Respiratory Rate Blood Pressure Pulse Oximetry Oxygen Delivery 09/21/24 00:00 09/21/24 00:00 09/21/24 02:00 Temperature 36.6 C Pulse Rate 80 79 79 Respiratory Rate 18 Blood Pressure 98/61 L Pulse Oximetry 100 Oxygen Delivery 09/21/24 04:00 09/21/24 04:00 09/21/24 06:00 Temperature Pulse Rate 79 95 83 Respiratory Rate 17 Blood Pressure 111/80 Pulse Oximetry 98 Oxygen Delivery 09/21/24 08:00 09/21/24 08:00 09/21/24 08:00 Temperature 36.3 C L Pulse Rate 106 H 107 H Respiratory Rate 20 Blood Pressure 100/67 Pulse Oximetry 97 97 Oxygen Delivery Room Air 09/21/24 09:57 09/21/24 10:00 09/21/24 11:40 Temperature 36.3 C L Pulse Rate 94 91 111 H Respiratory Rate 20 Blood Pressure 103/67 Pulse Oximetry 99 Oxygen Delivery Intake/Output Intake/Output: Intake & Output 09/18/24 09/19/24 09/20/24 09/21/24 23:59 23:59 23:59 23:59 Intake Total 2576.0 2264.6 Output Total 850 650 Balance 1726.0 1614.6 Meds/Results Medications: Active Medications Generic Name Dose Route Start Last Admin Trade Name Freq PRN Reason Stop Dose Admin Apixaban 5 mg 09/20/24 21:00 09/21/24 09:57 Apixaban 5 Mg Tablet PO 5 mg Q12HR [facility] Administration Sodium Chloride 1,000 mls @ 70 mls/hr 09/20/24 04:55 09/21/24 13:18 Normal Saline Iv IV CONT Not Given .[id number] ANDRZEJ Melatonin 3 mg 09/20/24 21:00 09/20/24 20:05 Melatonin 3 Mg Tablet PO 3 mg QHS ANDRZEJ Administration Metoprolol Tartrate 50 mg 09/21/24 21:00 Metoprolol Tartrate 50 Mg Tab PO Q12HR ANDRZEJ Ondansetron HCl 4 mg 09/20/24 04:53 09/21/24 08:04 Ondansetron Inj 4 Mg/2 Ml Vial IV PUSH 4 mg Q4H PRN Administration Nausea Pantoprazole Sodium 40 mg 09/20/24 21:00 09/21/24 09:56 Pantoprazole 40 Mg Tablet PO 40 mg Q12HR ANDRZEJ Administration Perflutren Lipid Microsphere 0 ml 09/20/24 05:48 Perflutren Lipid Microspheres 1.5 Ml Vial Diluted To 10 Ml Total Volume IV PUSH 09/23/24 05:48 ONCE PRN adequate visualization Protocol Simethicone 125 mg 09/20/24 10:46 09/21/24 06:55 Simethicone 125 Mg Chew Tab PO 125 mg QID PRN Administration Abdominal Cramping Vitamin B Complex 1 cap 09/21/24 09:00 09/21/24 09:56 Vitamin B Complex Capsule PO 1 cap QAM ANDRZEJ Administration Vitamin D 1,000 units 09/21/24 09:00 09/21/24 09:56 Cholecalciferol 1,000 Units Tablet PO 1,000 units DAILY ANDRZEJ Administration Radiology Results: ITS Impressions Chest/Abdomen/Pelvis CTA 09/20/24 05:28 Impression: Mild emphysema. Probable focal atelectatic change or scarring at the anterior lingula. Pneumonia less likely. No significant abnormality in the abdomen or pelvis. Abdomen/Pelvis CT 09/21/24 08:31 Impression: No acute abnormality. Labs Labs: Laboratory Results - last 24 hr 09/20/24 09/21/24 09/21/24 12:59 04:33 11:40 WBC 3.0 L RBC 3.52 L Hgb 11.7 L Hct 35.8 L MCV 101.7 H MCH 33.2 MCHC 32.7 RDW 11.8 Plt Count 183 MPV 10.5 H Sodium 137 Potassium 3.6 Chloride 109 H Carbon Dioxide 22 Anion Gap 6 BUN 12 Creatinine 1.01 Estim Creat Clear Calc 46 Estimated GFR > 60 Glucose 88 Calcium 8.1 L Magnesium 1.9 Troponin I < 0.012 Lipase 130 Influenza A (RT-PCR) Negative Influenza B (RT-PCR) Negative RSV (RT-PCR) Negative SARS-CoV-2 RNA (RT-PCR) Positive A
--- NOTE | 2024-09-21 18:24 | WPDGICN ---
Assessment and Plan Assessment and plan (1) Upper abdominal pain: Code(s): R10.10 - Upper abdominal pain, unspecified Status: Acute Assessment and Plan: worsening after covid but started even before that consider egd in 2 days (right now managing Afib- this is better), acute pain probably related to covid (2) Lack of appetite: Code(s): R63.0 - Anorexia Status: Acute Assessment and Plan: worsened after covid, eating again medical treatment egd in 2 days (3) COVID: Code(s): U07.1 - COVID-19 Status: Acute (4) GERD (gastroesophageal reflux disease): Qualifiers: Esophagitis presence: esophagitis presence not specified Qualified Code(s): K21.9 - Gastro-esophageal reflux disease without esophagitis Code(s): K21.9 - Gastro-esophageal reflux disease without esophagitis Status: Acute Assessment and Plan: ct scan reviewed (5) Laryngopharyngeal reflux: Code(s): K21.9 - Gastro-esophageal reflux disease without esophagitis Status: Acute (6) Atrial fibrillation with RVR: Code(s): I48.91 - Unspecified atrial fibrillation Status: Acute GI Consult Note Consult date/time: 09/21/24 18:24 Reason for consult: abdominal pain, anorexia, recent covid HPI: Pablo White is a 79 year old male who is our clinica patient because GERD. He is taking ppi and last egd 09/2023 no major findings (bx mild gastritis), had colonoscopy 2022 with colon polyps. He has seen ENT Dr. Elam when he was having hoarseness secondary to laryngopharyngeal reflux. He was diagnosed with COVID about a week [employer] and started on Paxlovid, even prior covid he has been having gi issues with intermittent cramping abdominal discomfort but since covid he lost his appetite afterwards and lost about 10 lb, just yesterday finally started eating again but also noted that 2-3 hours after eating will have lower abdominal discomfort. ER noted new diagnosis atrial fibrillation with RVR with rate in the 150s. Evaluated by cardiology. CT scan a/p no major findings. Review of Systems Constitutional: Constitutional: Reports body ache(s), Reports chills and Reports weakness Eyes: Eyes: Denies blurry vision ENT: Reports Normal hearing present Cardiovascular: Cardiovascular: Reports palpitations Respiratory: Respiratory: Denies dyspnea on exertion Gastrointestinal: Gastrointestinal: Reports abdominal pain Genitourinary: Genitourinary: Denies urinary incontinence Musculoskeletal: Musculoskeletal: Denies neck pain Integumentary/Breasts: Skin/Breast: Denies rash Neurologic: Denies Abnormal speech present Psychiatric: Psychiatric: Denies behavioral changes [facility] Past Medical History Medical History (Updated 09/21/24 @ 18:29 by Kamron Senior MD) COVID Lack of appetite Testicle cancer Cigarette nicotine dependence in remission GERD (gastroesophageal reflux disease) Pure hypercholesterolemia, unspecified Family History Family History Father Heart disease Mother Lung cancer Sibling Heart disease Colon cancer Social History Social History Smoking packs per day: 1.5 Smoking cigarettes per day: 30.0 Years smoked: 50 Smoking pack-years: 75.00 Smoking status: Former smoker Tobacco type: cigarettes Second hand tobacco smoke exposure: No Alcohol intake: never Drinks per week: 1 Substance use: never Substance use type: marijuana Other substance usage details: edibles or gummies Last use: 9 days ago or so Do You Feel Safe in your Home?: Yes Lack of Transportation: No Lack of Food: Never True Current Housing: I Have Housing Concerned About Future Housing: No Difficulty Paying Gas/Electric Bills: No Difficulty Paying for Meds: No Currently Unemployed: No Education: Bachelor's Degree Difficulty w/ Childcare or Family Care: No Living arrangements: alone Occupation/Education: retired Gender identity (if verbalized by the patient): Male Sexual Orientation (if Verbalized by the Patient): Straight or Heterosexual Spiritual care concerns: No Meds Home Medications and Allergies Home Medications ?Medication ?Instructions ?Recorded ?Confirmed ?Type vitamin B complex 1 tab-cap PO DAILY 10/07/22 09/20/24 History vitamin D3 25 mcg (1,000 unit)-vit 1 tablet PO DAILY 09/08/23 09/20/24 History K2 90 mcg disintegrating tablet melatonin 3 mg capsule 3 mg PO QHS 10/06/23 09/20/24 History omeprazole 40 mg capsule,delayed 40 mg PO BID #180 caps 08/04/24 09/20/24 Rx release vitamin K2 45 mcg capsule 45 mcg PO DAILY 09/20/24 09/20/24 History Allergies Allergy/AdvReac Type Severity Reaction Status Date / Time aspirin Allergy Unknown HIVES Verified 09/19/24 20:55 ibuprofen Allergy Unknown HIVES Verified 09/19/24 20:55 Vital Signs Vital Signs - 24 hr 09/20/24 19:48 09/20/24 20:00 09/20/24 20:06 Temperature 97.5 F L Pulse Rate 80 84 79 Respiratory Rate 17 Blood Pressure 101/64 Pulse Oximetry 98 Oxygen Delivery 09/20/24 22:00 09/21/24 00:00 09/21/24 00:00 Temperature 97.8 F Pulse Rate 77 80 79 Respiratory Rate 18 Blood Pressure 98/61 L Pulse Oximetry 100 Oxygen Delivery 09/21/24 02:00 09/21/24 04:00 09/21/24 04:00 Temperature Pulse Rate 79 79 95 Respiratory Rate 17 Blood Pressure 111/80 Pulse Oximetry 98 Oxygen Delivery 09/21/24 06:00 09/21/24 08:00 09/21/24 08:00 Temperature 97.3 F L Pulse Rate 83 106 H Respiratory Rate 20 Blood Pressure 100/67 Pulse Oximetry 97 97 Oxygen Delivery Room Air 09/21/24 08:00 09/21/24 09:57 09/21/24 10:00 Temperature Pulse Rate 107 H 94 91 Respiratory Rate Blood Pressure Pulse Oximetry Oxygen Delivery 09/21/24 11:40 09/21/24 12:00 09/21/24 12:00 Temperature 97.4 F L Pulse Rate 111 H 79 Respiratory Rate 20 Blood Pressure 103/67 Pulse Oximetry 99 99 Oxygen Delivery Room Air 09/21/24 14:00 09/21/24 15:45 09/21/24 16:00 Temperature 97.5 F L Pulse Rate 95 87 Respiratory Rate 20 Blood Pressure 92/59 L Pulse Oximetry 97 97 Oxygen Delivery Room Air 09/21/24 16:00 09/21/24 18:00 Temperature Pulse Rate 81 110 H Respiratory Rate Blood Pressure Pulse Oximetry Oxygen Delivery Exam Const: General: no acute distress Eyes: General: appearance normal, both eyes and all related structures Sclera: sclerae normal Neck: Neck: supple Resp: Effort & Inspection: normal respiratory effort Cardio: Rhythm: abnormal rhythm irregularly irregular GI: GI Palp: Yes Soft to palpation and No Tenderness to palpation present (GI) Auscultation: normal bowel sounds Skin: General skin exam: normal color Neuro: Speech: normal speech Motor exam (neuro): 5/5 motor strength present throughout Psych: Mental Status: mental status grossly normal Affect: normal affect Results Labs 09/21/24 04:33 09/21/24 04:33 Labs: Short CBC 09/21/24 Range/Units 04:33 WBC 3.0 L (4.5-10.0) K/mm3 Hgb 11.7 L (14.0-18.0) g/dL Hct 35.8 L (42.0-52.0) % Plt Count 183 (150-375) k/mm3 BMP 09/21/24 04:33 Sodium 137 Potassium 3.6 Chloride 109 H Carbon Dioxide 22 BUN 12 Creatinine 1.01 Glucose 88 Calcium 8.1 L Cardiac Enzymes 09/21/24 Range/Units 11:40 Troponin I < 0.012 (0.000-0.034) ng/mL
[2024-09-21] MEDS: MELATONIN 3 MG TABLET PO (20:08)
[2024-09-21] MEDS: METOPROLOL TARTRATE 50 MG TAB PO (20:08)
[2024-09-22] VITALS (15 sets, daily range): BP systolic 95–117; BP diastolic 61–79; PULSE 78–128; RESP 20; TEMP 36.3–36.6; O2SAT 97–100
[2024-09-22] MEDS: SODIUM CHLORIDE 0.9% IV 1,000 ML 70 ML IV CONT ×2 (04:10→21:40)
[2024-09-22 05:11] LABS: Hematocrit 36.4 % (42.0-52.0); Hemoglobin 11.8 g/dL (14.0-18.0); Mean Corpuscular HGB Conc 32.4 g/dl (32-36); Mean Corpuscular Hemoglobin 33.6 pg (26-34); Mean Corpuscular Volume 103.7 fl (80-100); Mean Platelet Volume 11.9 fl (7.4-10.4); Platelet Count Result 162 k/mm3 (150-375); Red Blood Count 3.51 M/mm3 (4.6-6.20); Red Cell Distribution Width 11.9 % (11.5-14.5); White Blood Count 3.7 K/mm3 (4.5-10.0)
[2024-09-22] MEDS: SIMETHICONE 125 MG CHEW TAB PO ×2 (06:20→21:41)
[2024-09-22 06:36] LABS: Anion Gap 5 mmol/L (4-12); Blood Urea Nitrogen 12 mg/dL (9-20); Calcium 8.4 mg/dL (8.4-10.2); Carbon Dioxide 26 mmol/L (22-30); Chloride 107 mmol/L (98-107); Estimated CRCL calculation 41 ml/min; Estimated Glomerular Filt Rate > 60; Glucose 92 mg/dL (65-110); Magnesium 1.9 mg/dL (1.6-2.3); Potassium 4.8 mmol/L (3.4-5.0); Sodium 138 mmol/L (137-145)
[2024-09-22] MEDS: METOPROLOL TARTRATE 50 MG TAB PO ×2 (09:12→20:01)
[2024-09-22] MEDS: VITAMIN B COMPLEX CAPSULE 1 CAP PO (09:12)
[2024-09-22] MEDS: APIXABAN 5 MG TABLET PO ×2 (09:12→20:02)
[2024-09-22] MEDS: CHOLECALCIFEROL 1,000 UNITS TABLET 1000 UNITS PO (09:13)
[2024-09-22] MEDS: PANTOPRAZOLE 40 MG TABLET PO ×2 (09:13→20:02)
--- NOTE | 2024-09-22 10:45 | PM.IMPN ---
Progress Note: A&P Assessment and Plan (1) Atrial fibrillation with RVR: Code(s): I48.91 - Unspecified atrial fibrillation Status: Acute (2) Dehydration: Code(s): E86.0 - Dehydration Status: Acute (3) GERD (gastroesophageal reflux disease): Qualifiers: Esophagitis presence: esophagitis presence not specified Qualified Code(s): K21.9 - Gastro-esophageal reflux disease without esophagitis Code(s): K21.9 - Gastro-esophageal reflux disease without esophagitis Status: Acute (4) Gastritis: Code(s): K29.70 - Gastritis, unspecified, without bleeding Status: Acute (5) COVID: Code(s): U07.1 - COVID-19 Status: Acute Plan A.Fib New onset. TSH normal Denies alcoholism, drug abuse, excessive caffeine intake. ECHO: Left ventricular systolic function is normal, estimated at 60-65%. [id number] 3 and started of Eliquis 5 mg PO BID Order HbA1c and Lipid Panel S/P Diltiazem drip and Metoprolol Tartarte 25 mg PO BID Abdominal pian/GERD CTA chest/abdomen/pelvis:Mild emphysema.Probable focal atelectatic change or scarring at the anterior lingula. Pneumonia less likely. No significant abnormality in the abdomen or pelvis. CT abdomen/pelvis GI consulted COVID positive on admission Currently on room air does not require treatment Contact, droplet precautions DuoNeb scheduled q.6 Tylenol as needed for fever, body aches Incentive spirometer EGD: 10/29/2023 (Dr. Hopper) for GERD Findings: The esophagus was examined mucosa was normal with normal Z-line and no ulcers or masses. No Carr's, no obvious esophagitis, no hernia. Multiple biopsies were taken from the lower 3rd esophagus. The Z-line was located 46 cm from the incisors The stomach at the body, cardia and fundus was examined and was normal with no ulcers or masses. No obvious gastritis. Multiple biopsies were taken. The bulb and 2nd portion of the duodenum was normal with no ulcers or masses Bx results: A. 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 B. Esophagus, biopsies: - Benign stratified squamous epithelium - No evidence of esophagitis - No gastric mucosa present COLONOSCOPY: 10/23/2022 (Dr. Coreas) for personal and family history of colon polyps findings: There were 2 small sessile polyps observed in the ascending colon. There was no bleeding. The appearance seen benign in nature. Multiple hot snare polypectomies were performed. The polyps were completely excised and retrieved. There were 2 medium sessile polyps observed in the descending colon. There was no bleeding. The appearance seen benign in nature. Multiple hot snare polypectomies were performed. The polyps were completely excised and retrieved Multiple small size uncomplicated internal hemorrhoids seen in the rectum. The hemorrhoids were not actively bleeding 3 year repeat colonoscopy recommended Bx results: Ascending colon polyp, polypectomy (A): - Tubular adenoma Descending colon polyp, polypectomy (B): - Tubular adenoma Subjective Date/time seen: 09/22/24 10:45 Interval history: Interval history: 79-year-old male with past medical history GERD, hypocholesterolemia presents with abdominal pain over past several days. He also reports he was diagnosed with COVID about a week [employer] and started on Paxlovid. However he lost his appetite afterwards. In [facility] he was found to be in atrial fibrillation with RVR with rate in the 150s. This is new diagnosis. Anion gap 17. Troponin negative. TSH within normal limits. CTA chest abdomen negative for any significant acute finding. He received diltiazem 10 mg IV x1, Zofran 4 mg IV x1, then placed on a diltiazem GTT at 10 milligrams/hour. Placed on normal saline infusion at 125 cc/hour. Patient with new onset Atrial Fibrillation was started on Diltiazem drip and was given metoprolol 25mg BID, his rate is trending down and BP was getting soft, stopped diltiazem, his rate is controlled with metoprolol, patient is anticoagulated with Lovenox.Repeat COVID 19 test is positive and patient is in isolation. Cardiology evaluated the patient and started the patient on metoprolol 25 mg b.i.d. and titrate if needed. And also started on Eliquis 5 mg p.o. b.i.d.. If the patient remains in atrial fibrillation cardiology plans for outpatient cardioversion after he has been anticoagulated at least for 4-6 weeks. Patient complains of severe abdominal pain. Ordered status CT scan abdomen pelvis which shows no significant finding. Consult GI. Will undergo EGD possibly today or tomorrow Review of Systems Review of Systems: All systems reviewed & are unremarkable except as noted in HPI and below (HPI) Exam Narrative: Patient is comfortable, NAD HEENT: eyes are clear and none icteric LUNGS:CTA HEART: Irregularly irregular ABD: BS+, Soft and nontender Lower extremities: no edema SKIN: nonjaundiced Neuro: grossly intact. Const: General: comfortable and no acute distress Other: A&O x3 HENMT: Mouth: Yes dry mucous membranes Eyes: Pupils: Equal, round and reactive pupils present Neck: Neck: supple Resp: Effort & Inspection: normal respiratory effort Auscultation: clear to auscultation bilaterally Cardio: Rate: regular rate Rhythm: abnormal rhythm Heart sounds: no gallops, no murmurs and no rubs : General: Yes bladder normal to palpation Neuro: Cranial nerves: Yes Equal, round and reactive pupils present Extrem: General: no edema Objective Data Vital Signs Vital Signs: Vital Signs - 24 hr 09/21/24 11:40 09/21/24 12:00 09/21/24 12:00 Temperature 97.4 F L Pulse Rate 111 H 79 Respiratory Rate 20 Blood Pressure 103/67 Pulse Oximetry 99 99 Oxygen Delivery Room Air 09/21/24 14:00 09/21/24 15:45 09/21/24 16:00 Temperature 97.5 F L Pulse Rate 95 87 Respiratory Rate 20 Blood Pressure 92/59 L Pulse Oximetry 97 97 Oxygen Delivery Room Air 09/21/24 16:00 09/21/24 18:00 09/21/24 20:00 Temperature 97.8 F Pulse Rate 81 110 H 109 H Respiratory Rate 20 Blood Pressure 105/70 Pulse Oximetry 98 Oxygen Delivery 09/21/24 20:00 09/21/24 20:00 09/21/24 20:08 Temperature Pulse Rate 102 H 109 H Respiratory Rate Blood Pressure Pulse Oximetry Oxygen Delivery Room Air 09/21/24 22:00 09/22/24 00:00 09/22/24 00:00 Temperature 97.8 F Pulse Rate 79 84 Respiratory Rate 20 Blood Pressure 104/61 Pulse Oximetry 97 Oxygen Delivery Room Air 09/22/24 00:00 09/22/24 02:00 09/22/24 04:00 Temperature Pulse Rate 78 80 Respiratory Rate Blood Pressure Pulse Oximetry Oxygen Delivery Room Air 09/22/24 04:00 09/22/24 04:00 09/22/24 06:00 Temperature 97.8 F Pulse Rate 80 84 86 Respiratory Rate 20 Blood Pressure 103/65 Pulse Oximetry 97 Oxygen Delivery 09/22/24 08:00 09/22/24 08:00 09/22/24 09:12 Temperature 97.5 F L Pulse Rate 87 117 H Respiratory Rate 20 Blood Pressure 95/65 L Pulse Oximetry 100 100 Oxygen Delivery Room Air Intake/Output Intake/Output: Intake & Output 09/19/24 09/20/24 09/21/24 09/22/24 23:59 23:59 23:59 23:59 Intake Total 2576.0 2624.6 975.4 Output Total 850 650 650 Balance 1726.0 1974.6 325.4 Meds/Results Medications: Active Medications Generic Name Dose Route Start Last Admin Trade Name Freq PRN Reason Stop Dose Admin Apixaban 5 mg 09/20/24 21:00 09/22/24 09:12 Apixaban 5 Mg Tablet PO 5 mg Q12HR ANDRZEJ Administration Sodium Chloride 1,000 mls @ 70 mls/hr 09/20/24 04:55 09/22/24 04:10 Normal Saline Iv IV CONT 70 mls/hr .[id number] ANDRZEJ Administration Melatonin 3 mg 09/20/24 21:00 09/21/24 20:08 Melatonin 3 Mg Tablet PO 3 mg QHS ANDRZEJ Administration Metoprolol Tartrate 50 mg 09/21/24 21:00 09/22/24 09:12 Metoprolol Tartrate 50 Mg Tab PO 50 mg Q12HR ANDRZEJ Administration Ondansetron HCl 4 mg 09/20/24 04:53 09/21/24 08:04 Ondansetron Inj 4 Mg/2 Ml Vial IV PUSH 4 mg Q4H PRN Administration Nausea Pantoprazole Sodium 40 mg 09/20/24 21:00 09/22/24 09:13 Pantoprazole 40 Mg Tablet PO 40 mg Q12HR ANDRZEJ Administration Perflutren Lipid Microsphere 0 ml 09/20/24 05:48 Perflutren Lipid Microspheres 1.5 Ml Vial Diluted To 10 Ml Total Volume IV PUSH 09/23/24 05:48 ONCE PRN adequate visualization Protocol Polyethylene Glycol 17 gm 09/23/24 09:00 Polyethylene Glycol 3350 17 Gm Powd.Pack PO QAM ANDRZEJ Simethicone 125 mg 09/20/24 10:46 09/22/24 06:20 Simethicone 125 Mg Chew Tab PO 125 mg QID PRN Administration Abdominal Cramping Vitamin B Complex 1 cap 09/21/24 09:00 09/22/24 09:12 Vitamin B Complex Capsule PO 1 cap QAM ANDRZEJ Administration Vitamin D 1,000 units 09/21/24 09:00 09/22/24 09:13 Cholecalciferol 1,000 Units Tablet PO 1,000 units DAILY ANDRZEJ Administration Radiology Results: ITS Impressions Chest/Abdomen/Pelvis CTA 09/20/24 05:28 Impression: Mild emphysema. Probable focal atelectatic change or scarring at the anterior lingula. Pneumonia less likely. No significant abnormality in the abdomen or pelvis. Abdomen/Pelvis CT 09/21/24 08:31 Impression: No acute abnormality. Labs Labs: Laboratory Results - last 24 hr 09/21/24 09/22/24 09/22/24 11:40 04:25 06:03 WBC 3.7 L RBC 3.51 L Hgb 11.8 L Hct 36.4 L MCV 103.7 H MCH 33.6 MCHC 32.4 RDW 11.9 Plt Count 162 MPV 11.9 H Sodium 138 Potassium 4.8 Chloride 107 Carbon Dioxide 26 Anion Gap 5 BUN 12 Creatinine 1.15 Estim Creat Clear Calc 41 Estimated GFR > 60 Glucose 92 Calcium 8.4 Magnesium 1.9 Troponin I < 0.012 Lipase 130 Hospitalist MIPS Advance Care Plan I have confirmed that the patient's Advanced Care Plan is present, code status is documented, or surrogate decision maker is listed in patient medical record.: Yes Medication Reconciliation I have utilized all available resources to obtain, update and review the patients current medications (includes all prescriptions, OTC, herbals, cannabis, and nutritional supplements).: Yes
--- NOTE | 2024-09-22 10:47 | P.PNCA_ITS ---
Progress Note: A&P Assessment and Plan (1) Atrial fibrillation with RVR: Code(s): I48.91 - Unspecified atrial fibrillation Status: Acute Assessment and Plan: This is a new diagnosis. Chronicity is unknown. Echocardiogram with preserved LVEF. * Continue metoprolol 50mg q12h. The tachycardia with activity this morning appears to be artifact. Instructed RN to allow patient to ambulate so we can assess heart rate with activity. If he needs further rate control can add digoxin - has been hypotensive requiring IV fluids so would not increase metoprolol further * He has a CHADS2 Vasc score of 2. Anticoagulation is indicated. Started Eliquis 5mg BID. * If he remains in atrial fibrillation, we will plan for outpatient cardioversion after he has been anticoagulated for at least 4-6 weeks. Subjective Date/time seen: 09/22/24 10:47 Interval history: Reason for visit: Atrial fibrillation with RVR HPI: Pablo White is a 79 year old male with history of GERD and hyperlipidemia. This is a patient who comes to the hospital with loss of appetite. He was diagnosed with COVID about a week ago and was prescribed Paxil of id and since that time has not had much of an appetite. He came to the emergency room because of this and was found to be in atrial fibrillation with rapid ventricular response. This is a new diagnosis for the patient. He was placed on a diltiazem drip and started on oral metoprolol. He became hypotensive, therefore the diltiazem drip was stopped he remains on metoprolol. His heart rate is well controlled. He does not have any chest pain, palpitations, shortness of breath. Date of service 09/21: AFIB is rate controlled at rest, however, heart rate increases to 120s-130s with activity. Having stomach pains this morning. Date of service 09/22/2024: He is feeling better today. Reports that when he got up to brush his teeth his heart rate increased and he was told to get back in bed. He did not feel any palpitations, chest pain, shortness of breath. Resting HR is controlled, 70's - 80's generally. Review of Systems Review of Systems: All systems reviewed & are unremarkable except as noted in HPI and below Cardiovascular: Cardiovascular: Reports as per HPI Exam Const: General: comfortable, no acute distress, alert and awake Orientation/consciousness: patient oriented x3 HENMT: Head: normal to inspection Eyes: General: appearance normal, both eyes and all related structures Scle ra: sclerae normal Pupils: Equal, round and reactive pupils present Neck: Neck: normal visual inspection, supple and no JVD Carotids: normal carotid upstroke Resp: Effort & Inspection: normal respiratory effort Cardio: Rate: regular rate Rhythm: abnormal rhythm irregularly irregular Heart sounds: S1 normal heart sound present, S2 normal heart sound present and no murmurs GI: Auscultation: normal bowel sounds Skin: General skin exam: normal color Neuro: General: patient oriented x3 Cranial nerves: Yes Equal, round and reactive pupils present Speech: normal speech Extrem: General: normal to inspection Psych: Appearance: grossly normal Mental Status: mental status grossly normal Affect: normal affect Objective Data Vital Signs Vital Signs: Vital Signs - 24 hr 09/21/24 11:40 09/21/24 12:00 09/21/24 12:00 Temperature 36.3 C L Pulse Rate 111 H 79 Respiratory Rate 20 Blood Pressure 103/67 Pulse Oximetry 99 99 Oxygen Delivery Room Air 09/21/24 14:00 09/21/24 15:45 09/21/24 16:00 Temperature 36.4 C L Pulse Rate 95 87 Respiratory Rate 20 Blood Pressure 92/59 L Pulse Oximetry 97 97 Oxygen Delivery Room Air 09/21/24 16:00 09/21/24 18:00 09/21/24 20:00 Temperature 36.6 C Pulse Rate 81 110 H 109 H Respiratory Rate 20 Blood Pressure 105/70 Pulse Oximetry 98 Oxygen Delivery 09/21/24 20:00 09/21/24 20:00 09/21/24 20:08 Temperature Pulse Rate 102 H 109 H Respiratory Rate Blood Pressure Pulse Oximetry Oxygen Delivery Room Air 09/21/24 22:00 09/22/24 00:00 09/22/24 00:00 Temperature 36.6 C Pulse Rate 79 84 Respiratory Rate 20 Blood Pressure 104/61 Pulse Oximetry 97 Oxygen Delivery Room Air 09/22/24 00:00 09/22/24 02:00 09/22/24 04:00 Temperature Pulse Rate 78 80 Respiratory Rate Blood Pressure Pulse Oximetry Oxygen Delivery Room Air 09/22/24 04:00 09/22/24 04:00 09/22/24 06:00 Temperature 36.6 C Pulse Rate 80 84 86 Respiratory Rate 20 Blood Pressure 103/65 Pulse Oximetry 97 Oxygen Delivery 09/22/24 08:00 09/22/24 08:00 09/22/24 09:12 Temperature 36.4 C L Pulse Rate 87 117 H Respiratory Rate 20 Blood Pressure 95/65 L Pulse Oximetry 100 100 Oxygen Delivery Room Air Intake/Output Intake/Output: Intake & Output 09/19/24 09/20/24 09/21/24 09/22/24 23:59 23:59 23:59 23:59 Intake Total 2576.0 2624.6 975.4 Output Total 850 650 650 Balance 1726.0 1974.6 325.4 Meds/Results Medications: Active Medications Generic Name Dose Route Start Last Admin Trade Name Freq PRN Reason Stop Dose Admin Apixaban 5 mg 09/20/24 21:00 09/22/24 09:12 Apixaban 5 Mg Tablet PO 5 mg Q12HR ANDRZEJ Administration Sodium Chloride 1,000 mls @ 70 mls/hr 09/20/24 04:55 09/22/24 04:10 Normal Saline Iv IV CONT 70 mls/hr .[id number] ANDRZEJ Administration Melatonin 3 mg 09/20/24 21:00 09/21/24 20:08 Melatonin 3 Mg Tablet PO 3 mg QHS ANDRZEJ Administration Metoprolol Tartrate 50 mg 09/21/24 21:00 09/22/24 09:12 Metoprolol Tartrate 50 Mg Tab PO 50 mg Q12HR ANDRZEJ Administration Ondansetron HCl 4 mg 09/20/24 04:53 09/21/24 08:04 Ondansetron Inj 4 Mg/2 Ml Vial IV PUSH 4 mg Q4H PRN Administration Nausea Pantoprazole Sodium 40 mg 09/20/24 21:00 09/22/24 09:13 Pantoprazole 40 Mg Tablet PO 40 mg Q12HR ANDRZEJ Administration Perflutren Lipid Microsphere 0 ml 09/20/24 05:48 Perflutren Lipid Microspheres 1.5 Ml Vial Diluted To 10 Ml Total Volume IV PUSH 09/23/24 05:48 ONCE PRN adequate visualization Protocol Polyethylene Glycol 17 gm 09/23/24 09:00 Polyethylene Glycol 3350 17 Gm Powd.Pack PO QAM ANDRZEJ Simethicone 125 mg 09/20/24 10:46 09/22/24 06:20 Simethicone 125 Mg Chew Tab PO 125 mg QID PRN Administration Abdominal Cramping Vitamin B Complex 1 cap 09/21/24 09:00 09/22/24 09:12 Vitamin B Complex Capsule PO 1 cap QAM ANDRZEJ Administration Vitamin D 1,000 units 09/21/24 09:00 09/22/24 09:13 Cholecalciferol 1,000 Units Tablet PO 1,000 units DAILY ANDRZEJ Administration Radiology Results: ITS Impressions Chest/Abdomen/Pelvis CTA 09/20/24 05:28 Impression: Mild emphysema. Probable focal atelectatic change or scarring at the anterior lingula. Pneumonia less likely. No significant abnormality in the abdomen or pelvis. Abdomen/Pelvis CT 09/21/24 08:31 Impression: No acute abnormality. Labs Labs: Laboratory Results - last 24 hr 09/21/24 09/22/24 09/22/24 11:40 04:25 06:03 WBC 3.7 L RBC 3.51 L Hgb 11.8 L Hct 36.4 L MCV 103.7 H MCH 33.6 MCHC 32.4 RDW 11.9 Plt Count 162 MPV 11.9 H Sodium 138 Potassium 4.8 Chloride 107 Carbon Dioxide 26 Anion Gap 5 BUN 12 Creatinine 1.15 Estim Creat Clear Calc 41 Estimated GFR > 60 Glucose 92 Calcium 8.4 Magnesium 1.9 Troponin I < 0.012 Lipase 130
[2024-09-22] MEDS: polyethylene glycoL 3350 17 GM POWD.PACK PO (11:39)
--- NOTE | 2024-09-22 16:10 | WPDGIPROGNO ---
Progress Note: A&P Assessment and Plan (1) Upper abdominal pain: Code(s): R10.10 - Upper abdominal pain, unspecified Status: Acute Assessment and Plan: this has improved and eating more without discomfort given A fib and symptomatic improvement, we do not need to repeat EGD but he can follow-up in office (2) GERD (gastroesophageal reflux disease): Qualifiers: Esophagitis presence: esophagitis presence not specified Qualified Code(s): K21.9 - Gastro-esophageal reflux disease without esophagitis Code(s): K21.9 - Gastro-esophageal reflux disease without esophagitis Status: Acute Assessment and Plan: on ppi- he prefers to switch to pantoprazole instead of omeprazole- he will call office if insurance will pay for that so we can prescribe (3) Atrial fibrillation with RVR: Code(s): I48.91 - Unspecified atrial fibrillation Status: Acute (4) COVID: Code(s): U07.1 - COVID-19 Status: Acute (5) Lack of appetite: Code(s): R63.0 - Anorexia Status: Acute Assessment and Plan: wonder if partially from recent covid doing better and eating more now Subjective Date/time seen: 09/22/24 16:10 Interval history: eating more now without abdominal pain still a fib Review of Systems Review of Systems: All systems reviewed & are unremarkable except as noted in HPI and below Exam Const: General: no acute distress Eyes: General: appearance normal, both eyes and all related structures Sclera: sclerae normal Neck: Neck: supple Resp: Effort & Inspection: normal respiratory effort Cardio: Rhythm: abnormal rhythm irregularly irregular GI: GI Palp: Yes Soft to palpation and No Tenderness to palpation present (GI) Auscultation: normal bowel sounds Skin: General skin exam: normal color Neuro: Speech: normal speech Motor exam (neuro): 5/5 motor strength present throughout Psych: Mental Status: mental status grossly normal Affect: normal affect Objective Data Vital Signs Vital Signs: Vital Signs - 24 hr 09/21/24 18:00 09/21/24 20:00 09/21/24 20:00 Temperature 97.8 F Pulse Rate 110 H 109 H Respiratory Rate 20 Blood Pressure 105/70 Pulse Oximetry 98 Oxygen Delivery Room Air 09/21/24 20:00 09/21/24 20:08 09/21/24 22:00 Temperature Pulse Rate 102 H 109 H 79 Respiratory Rate Blood Pressure Pulse Oximetry Oxygen Delivery 09/22/24 00:00 09/22/24 00:00 09/22/24 00:00 Temperature 97.8 F Pulse Rate 84 78 Respiratory Rate 20 Blood Pressure 104/61 Pulse Oximetry 97 Oxygen Delivery Room Air 09/22/24 02:00 09/22/24 04:00 09/22/24 04:00 Temperature Pulse Rate 80 80 Respiratory Rate Blood Pressure Pulse Oximetry Oxygen Delivery Room Air 09/22/24 04:00 09/22/24 06:00 09/22/24 08:00 Temperature 97.8 F 97.5 F L Pulse Rate 84 86 87 Respiratory Rate 20 20 Blood Pressure 103/65 95/65 L Pulse Oximetry 97 100 Oxygen Delivery 09/22/24 08:00 09/22/24 08:00 09/22/24 09:12 Temperature Pulse Rate 99 117 H Respiratory Rate Blood Pressure Pulse Oximetry 100 Oxygen Delivery Room Air 09/22/24 10:00 09/22/24 12:00 09/22/24 12:00 Temperature 97.5 F L Pulse Rate 85 78 Respiratory Rate 20 Blood Pressure 96/63 L Pulse Oximetry 100 100 Oxygen Delivery Room Air 09/22/24 12:00 09/22/24 14:00 09/22/24 15:47 Temperature 97.5 F L Pulse Rate 100 86 86 Respiratory Rate 20 Blood Pressure 102/70 Pulse Oximetry 99 Oxygen Delivery Intake/Output Intake/Output: Intake & Output 09/19/24 09/20/24 09/21/24 09/22/24 23:59 23:59 23:59 23:59 Intake Total 2576.0 2624.6 1215.4 Output Total 850 650 650 Balance 1726.0 1974.6 565.4 Meds/Results Medications: Active Medications Generic Name Dose Route Start Last Admin Trade Name Freq PRN Reason Stop Dose Admin Apixaban 5 mg 09/20/24 21:00 09/22/24 09:12 Apixaban 5 Mg Tablet PO 5 mg Q12HR ANDRZEJ Administration Sodium Chloride 1,000 mls @ 70 mls/hr 09/20/24 04:55 09/22/24 04:10 Normal Saline Iv IV CONT 70 mls/hr .[id number] ANDRZEJ Administration Melatonin 3 mg 09/20/24 21:00 09/21/24 20:08 Melatonin 3 Mg Tablet PO 3 mg QHS ANDRZEJ Administration Metoprolol Tartrate 50 mg 09/21/24 21:00 09/22/24 09:12 Metoprolol Tartrate 50 Mg Tab PO 50 mg Q12HR ANDRZEJ Administration Ondansetron HCl 4 mg 09/20/24 04:53 09/21/24 08:04 Ondansetron Inj 4 Mg/2 Ml Vial IV PUSH 4 mg Q4H PRN Administration Nausea Pantoprazole Sodium 40 mg 09/20/24 21:00 09/22/24 09:13 Pantoprazole 40 Mg Tablet PO 40 mg Q12HR ANDRZEJ Administration Perflutren Lipid Microsphere 0 ml 09/20/24 05:48 Perflutren Lipid Microspheres 1.5 Ml Vial Diluted To 10 Ml Total Volume IV PUSH 09/23/24 05:48 ONCE PRN adequate visualization Protocol Polyethylene Glycol 17 gm 09/23/24 09:00 Polyethylene Glycol 3350 17 Gm Powd.Pack PO QAM ANDRZEJ Polyethylene Glycol 17 gm 09/22/24 11:35 09/22/24 11:39 Polyethylene Glycol 3350 17 Gm Powd.Pack PO 17 gm QAM ANDRZEJ Administration Simethicone 125 mg 09/20/24 10:46 09/22/24 06:20 Simethicone 125 Mg Chew Tab PO 125 mg QID PRN Administration Abdominal Cramping Vitamin B Complex 1 cap 09/21/24 09:00 09/22/24 09:12 Vitamin B Complex Capsule PO 1 cap QAM ANDRZEJ Administration Vitamin D 1,000 units 09/21/24 09:00 09/22/24 09:13 Cholecalciferol 1,000 Units Tablet PO 1,000 units DAILY ANDRZEJ Administration Radiology Results: ITS Impressions Chest/Abdomen/Pelvis CTA 09/20/24 05:28 Impression: Mild emphysema. Probable focal atelectatic change or scarring at the anterior lingula. Pneumonia less likely. No significant abnormality in the abdomen or pelvis. Abdomen/Pelvis CT 09/21/24 08:31 Impression: No acute abnormality. Labs Labs: Laboratory Results - last 24 hr 09/22/24 09/22/24 04:25 06:03 WBC 3.7 L RBC 3.51 L Hgb 11.8 L Hct 36.4 L MCV 103.7 H MCH 33.6 MCHC 32.4 RDW 11.9 Plt Count 162 MPV 11.9 H Sodium 138 Potassium 4.8 Chloride 107 Carbon Dioxide 26 Anion Gap 5 BUN 12 Creatinine 1.15 Estim Creat Clear Calc 41 Estimated GFR > 60 Glucose 92 Calcium 8.4 Magnesium 1.9
[2024-09-22] MEDS: MELATONIN 3 MG TABLET PO (20:01)
[2024-09-23] VITALS (11 sets, daily range): BP systolic 107–133; BP diastolic 69–81; PULSE 79–122; RESP 18–28; TEMP 36.4–36.7; O2SAT 97–100
[2024-09-23 04:19] LABS: Hematocrit 35.5 % (42.0-52.0); Hemoglobin 11.4 g/dL (14.0-18.0); Mean Corpuscular HGB Conc 32.1 g/dl (32-36); Mean Corpuscular Hemoglobin 33.5 pg (26-34); Mean Corpuscular Volume 104.4 fl (80-100); Mean Platelet Volume 10.7 fl (7.4-10.4); Platelet Count Result 174 k/mm3 (150-375); Red Cell Distribution Width 11.5 % (11.5-14.5); White Blood Count 3.7 K/mm3 (4.5-10.0)
[2024-09-23] MEDS: SIMETHICONE 125 MG CHEW TAB PO (04:22)
[2024-09-23 04:32] LABS: Alanine Aminotransferase 36 U/L (6-50); Albumin Level 2.9 g/dL (3.5-5.1); Alkaline Phosphatase 65 U/L (38-126); Anion Gap 6 mmol/L (4-12); Aspartate Amino Transferase 32 U/L (17-59); Bilirubin,Total 0.5 mg/dL (0.2-1.3); Blood Urea Nitrogen 10 mg/dL (9-20); Calcium 8.1 mg/dL (8.4-10.2); Carbon Dioxide 26 mmol/L (22-30); Chloride 107 mmol/L (98-107); Estimated CRCL calculation 42 ml/min; Estimated Glomerular Filt Rate > 60; Glucose 88 mg/dL (65-110); Magnesium 1.8 mg/dL (1.6-2.3); Potassium 4.5 mmol/L (3.4-5.0); Sodium 139 mmol/L (137-145)
[2024-09-23] MEDS: APIXABAN 5 MG TABLET PO (09:19)
[2024-09-23] MEDS: VITAMIN B COMPLEX CAPSULE 1 CAP PO (09:19)
[2024-09-23] MEDS: PANTOPRAZOLE 40 MG TABLET PO (09:19)
[2024-09-23] MEDS: CHOLECALCIFEROL 1,000 UNITS TABLET 1000 UNITS PO (09:20)
[2024-09-23] MEDS: METOPROLOL TARTRATE 50 MG TAB PO (09:20)
--- NOTE | 2024-09-23 11:03 | P.DS_ITS ---
DS: Admitting Diagnosis Discharge Date 09/23/2024 Admitting Diagnosis New onset of AFib DS: Discharge Diagnosis Discharge Diagnosis (1) Atrial fibrillation with RVR: Code(s): I48.91 - Unspecified atrial fibrillation Status: Acute (2) Dehydration: Code(s): E86.0 - Dehydration Status: Acute (3) GERD (gastroesophageal reflux disease): Qualifiers: Esophagitis presence: esophagitis presence not specified Qualified Code(s): K21.9 - Gastro-esophageal reflux disease without esophagitis Code(s): K21.9 - Gastro-esophageal reflux disease without esophagitis Status: Acute (4) Gastritis: Code(s): K29.70 - Gastritis, unspecified, without bleeding Status: Acute (5) COVID: Code(s): U07.1 - COVID-19 Status: Acute DS: Summary Hospital Course Hospital Course: 79-year-old male with past medical history GERD, hypocholesterolemia presents with abdominal pain over past several days. He also reports he was diagnosed with COVID about a week [employer] and started on Paxlovid. However he lost his appetite afterwards. In [facility] he was found to be in atrial fibrillation with RVR with rate in the 150s. This is new diagnosis. Anion gap 17. Troponin negative. TSH within normal limits. CTA chest abdomen negative for any significant acute finding. He received diltiazem 10 mg IV x1, Zofran 4 mg IV x1, then placed on a diltiazem GTT at 10 milligrams/hour. Placed on normal saline infusion at 125 cc/hour. Patient with new onset Atrial Fibrillation was started on Diltiazem drip and was given metoprolol 25mg BID, his rate is trending down and BP was getting soft, stopped diltiazem, his rate is controlled with metoprolol, patient is anticoagulated with Lovenox.Repeat COVID 19 test is positive and patient is in isolation. Cardiology evaluated the patient and started the patient on Metoprolol 50 mg b.i.d. and titrate if needed. And also started on Eliquis 5 mg p.o. b.i.d.. If the patient remains in atrial fibrillation cardiology plans for outpatient cardioversion after he has been anticoagulated at least for 4-6 weeks. A.Fib New onset. TSH normal Denies alcoholism, drug abuse, excessive caffeine intake. ECHO: Left ventricular systolic function is normal, estimated at 60-65%. [id number] 3 and started of Eliquis 5 mg PO BID Order HbA1c and Lipid Panel S/P Diltiazem drip and Metoprolol Tartarte 50 mg PO BID Abdominal pian/GERD CTA chest/abdomen/pelvis:Mild emphysema.Probable focal atelectatic change or scarring at the anterior lingula. Pneumonia less likely. No significant abnormality in the abdomen or pelvis. CT abdomen/pelvis GI consulted COVID positive on admission Currently on room air does not require treatment Contact, droplet precautions DuoNeb scheduled q.6 Tylenol as needed for fever, body aches Incentive spirometer EGD: 10/29/2023 (Dr. Hopper) for GERD Findings: The esophagus was examined mucosa was normal with normal Z-line and no ulcers or masses. No Carr's, no obvious esophagitis, no hernia. Multiple biopsies were taken from the lower 3rd esophagus. The Z-line was located 46 cm from the incisors The stomach at the body, cardia and fundus was examined and was normal with no ulcers or masses. No obvious gastritis. Multiple biopsies were taken. The bulb and 2nd portion of the duodenum was normal with no ulcers or masses Bx results: A. 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 B. Esophagus, biopsies: - Benign stratified squamous epithelium - No evidence of esophagitis - No gastric mucosa present COLONOSCOPY: 10/23/2022 (Dr. Coreas) for personal and family history of colon polyps findings: There were 2 small sessile polyps observed in the ascending colon. There was no bleeding. The appearance seen benign in nature. Multiple hot snare polypectomies were performed. The polyps were completely excised and retrieved. There were 2 medium sessile polyps observed in the descending colon. There was no bleeding. The appearance seen benign in nature. Multiple hot snare p olypectomies were performed. The polyps were completely excised and retrieved Multiple small size uncomplicated internal hemorrhoids seen in the rectum. The hemorrhoids were not actively bleeding 3 year repeat colonoscopy recommended Bx results: Ascending colon polyp, polypectomy (A): - Tubular adenoma Descending colon polyp, polypectomy (B): - Tubular adenoma On 09/23 patient was initially reported to me that he is not feeling well. After long discussion patient reported he wants to do the EGD. Called a Gastroenterology and reported since the EGD wont be able to perform during the weekend patients can not stay and get the EGD on Thursday. Patient wants to do the EGD as an outpatient. Explained the risk and benefits of not performing the EGD. Patient understands the conversation and wants the EGD to be performed as outpatient. Due to the new onset of AFib patient is started on Eliquis 5 mg p.o. b.i.d.. Status at Discharge Cognitive/behavioral status at discharge: Stable Time Spent with Patient Time attestation: Total time spent providing and/or coordinating discharge services:45 minutes Exam Narrative: Patient is comfortable, NAD HEENT: eyes are clear and none icteric LUNGS:CTA HEART: Irregularly irregular ABD: BS+, Soft and nontender Lower extremities: no edema SKIN: nonjaundiced Neuro: grossly intact. Const: General: comfortable and no acute distress Other: A&O x3 HENMT: Mouth: Yes dry mucous membranes Eyes: Pupils: Equal, round and reactive pupils present Neck: Neck: supple Resp: Effort & Inspection: normal respiratory effort Auscultation: clear to auscultation bilaterally Cardio: Rate: regular rate Rhythm: abnormal rhythm Heart sounds: no gallops, no murmurs and no rubs : General: Yes bladder normal to palpation Neuro: Cranial nerves: Yes Equal, round and reactive pupils present Extrem: General: no edema DS: Data Data Completed and Pending Labs on day of discharge: Labs from last 24 hours 09/23/24 04:13 WBC 3.7 L RBC 3.40 L Hgb 11.4 L Hct 35.5 L MCV 104.4 H MCH 33.5 MCHC 32.1 RDW 11.5 Plt Count 174 MPV 10.7 H Sodium 139 Potassium 4.5 Chloride 107 Carbon Dioxide 26 Anion Gap 6 BUN 10 Creatinine 1.13 Estim Creat Clear Calc 42 Estimated GFR > 60 Glucose 88 Calcium 8.1 L Magnesium 1.8 Total Bilirubin 0.5 AST 32 ALT 36 Alkaline Phosphatase 65 Total Protein 5.0 L Albumin 2.9 L Discharge Plan Discharge Attending physician on discharge: Jimmy Shea Consulting providers: Lubna Reyna Discharging Clinician: Jimmy Shea Patient Disposition: Home Activity: as tolerated Diet: as tolerated Discharge Instructions: Please follow-up with cardiology and Gastroenterology as an outpatient within a week upon discharge. Check blood pressure 1 to 2 times a day. Record and bring into your doctor for review. Call your doctor if your blood pressure is greater than 180/110 or less than 90/45. Walk with cane or other assist device. Take precautions to avoid falls. Rise slowly from a lying or sitting position. Pause before standing or walking. Contact your doctor or call 911 and come to the Emergency Room if you have any type of trauma, lightheadedness with standing or other worrisome symptoms. Avoid NSAIDs (ibuprofen, naproxen, Aleve). Tylenol is safe to take. Follow-up with your primary care provider in 1-2 weeks. Please call for ap pointment. Follow-up with Cardiology in 2-4 weeks. Please call for an appointment. Thank you for using [facility] for your health care needs. Patient Instructions: Antibiotic Form, Enoxaparin (By injection) Patient Language: Panamanian Stand Alone Forms: General Discharge Information Follow-up/Referrals: Teri Dixon MD [Physician] - Ulises Ward MD [Primary Care Provider] - Lubna Reyna MD [Physician] - Discharge Medications: New simethicone [Gas-X Extra Strength] 125 mg Capsule 125 mg PO QID PRN (Reason: Abdominal Cramping) Qty: 30 0RF Eliquis 5 mg Tablet 5 mg PO Q12HR Qty: 30 0RF metoprolol tartrate 50 mg Tablet 50 mg PO Q12HR Qty: 30 0RF Continued melatonin 3 mg capsule 3 mg PO QHS omeprazole 40 mg capsule,delayed release(DR/EC) 40 mg PO BID Qty: 180 2RF vitamin D3-vitamin K2 25 mcg (1,000 unit)-90 mcg tablet,disintegrating 1 tablet PO DAILY vitamin B complex 1 tab-cap PO DAILY vitamin K2 45 mcg capsule 45 mcg PO DAILY Date of admission: 09/22/24 14:38 Primary Care Provider: Ulises Ward Admitting Provider: Teri Dixon Attending physician on admission: Teri Dixon Condition: Stable
--- NOTE | 2024-09-23 11:05 | PCNFU ---
Nutrition Follow-Up Complete: Suboptimal po intake related to reduced appetite following COVID as evidenced by charted intake and pt report PO intake 75% - Progressing. Intakes 25-100%, improving Goal: Pt current nutrition is Regular diet. Ensure Enlive BID (350 kcal, 20 g protein) Nutrition recommendation: No new recommendations. Continue current nutrition care plan and orders. Agree with orders Last recorded weight is 60.8 kg. Bowel Motility: +1 BM 09/23/24 Labs Reviewed: Hgb 11.4, Hct 35.5, Alb 2.9 Meds Noted: Protonix, B complex, Vit D, Zofran, Miralax Skin: No skin issues Additional Notes: Intakes are fair to good. Improving. Continue current orders. Monitor intake, wt, labs. Follow up in 5 days.
--- NOTE | 2024-09-23 13:35 | P.PNIM_ITS ---
Progress Note: A&P Assessment and Plan (1) Atrial fibrillation with RVR: Code(s): I48.91 - Unspecified atrial fibrillation Status: Acute (2) Dehydration: Code(s): E86.0 - Dehydration Status: Acute (3) GERD (gastroesophageal reflux disease): Qualifiers: Esophagitis presence: esophagitis presence not specified Qualified Code(s): K21.9 - Gastro-esophageal reflux disease without esophagitis Code(s): K21.9 - Gastro-esophageal reflux disease without esophagitis Status: Acute (4) Gastritis: Code(s): K29.70 - Gastritis, unspecified, without bleeding Status: Acute (5) COVID: Code(s): U07.1 - COVID-19 Status: Acute Plan A.Fib New onset. TSH normal Denies alcoholism, drug abuse, excessive caffeine intake. ECHO: Left ventricular systolic function is normal, estimated at 60-65%. [id number] 3 and started of Eliquis 5 mg PO BID Order HbA1c and Lipid Panel S/P Diltiazem drip and Metoprolol Tartarte 25 mg PO BID Abdominal pian/GERD CTA chest/abdomen/pelvis:Mild emphysema.Probable focal atelectatic change or scarring at the anterior lingula. Pneumonia less likely. No significant abnormality in the abdomen or pelvis. CT abdomen/pelvis GI consulted COVID positive on admission Currently on room air does not require treatment Contact, droplet precautions DuoNeb scheduled q.6 Tylenol as needed for fever, body aches Incentive spirometer EGD: 10/29/2023 (Dr. Hopper) for GERD Findings: The esophagus was examined mucosa was normal with normal Z-line and no ulcers or masses. No Carr's, no obvious esophagitis, no hernia. Multiple biopsies were taken from the lower 3rd esophagus. The Z-line was located 46 cm from the incisors The stomach at the body, cardia and fundus was examined and was normal with no ulcers or masses. No obvious gastritis. Multiple biopsies were taken. The bulb and 2nd portion of the duodenum was normal with no ulcers or masses Bx results: A. 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 B. Esophagus, biopsies: - Benign stratified squamous epithelium - No evidence of esophagitis - No gastric mucosa present COLONOSCOPY: 10/23/2022 (Dr. Coreas) for personal and family history of colon polyps findings: There were 2 small sessile polyps observed in the ascending colon. There was no bleeding. The appearance seen benign in nature. Multiple hot snare polypectomies were performed. The polyps were completely excised and retrieved. There were 2 medium sessile polyps observed in the descending colon. There was no bleeding. The appearance seen benign in nature. Multiple hot snare polypectomies were performed. The polyps were completely excised and retrieved Multiple small size uncomplicated internal hemorrhoids seen in the rectum. The hemorrhoids were not actively bleeding 3 year repeat colonoscopy recommended Bx results: Ascending colon polyp, polypectomy (A): - Tubular adenoma Descending colon polyp, polypectomy (B): - Tubular adenoma Subjective Date/time seen: 09/23/24 13:35 Interval history: Patient reports he is not currently doing well. Patient wants to talk with the Gastroenterology and Cardiology. Patient reports of abdominal pain yesterday night. Review of Systems 2 Review of Systems: All systems reviewed & are unremarkable except as noted in HPI and below (HPI) Exam Narrative: Patient is comfortable, NAD HEENT: eyes are clear and none icteric LUNGS:CTA HEART: Irregularly irregular ABD: BS+, Soft and nontender Lower extremities: no edema SKIN: nonjaundiced Neuro: grossly intact. Const: General: comfortable and no acute distress Other: A&O x3 HENMT: Mouth: Yes dry mucous membranes Eyes: Pupils: Equal, round and reactive pupils present Neck: Neck: supple Resp: Effort & Inspection: normal respiratory effort Auscultation: clear to auscultation bilaterally Cardio: Rate: regular rate Rhythm: abnormal rhythm Heart sounds: no gallops, no murmurs and no rubs : General: Yes bladder normal to palpation Neuro: Cranial nerves: Yes Equal, round and reactive pupils present Extrem: General: no edema Objective Data Vital Signs Vital Signs: Vital Signs - 24 hr 09/22/24 14:00 09/22/24 15:47 09/22/24 16:00 Temperature 97.5 F L Pulse Rate 86 86 Respiratory Rate 20 Blood Pressure 102/70 Pulse Oximetry 99 99 Oxygen Delivery Room Air 09/22/24 16:00 09/22/24 18:00 09/22/24 20:00 Temperature 97.4 F L Pulse Rate 85 97 95 Respiratory Rate 20 Blood Pressure 117/79 Pulse Oximetry 98 Oxygen Delivery 09/22/24 20:00 09/22/24 20:00 09/22/24 20:01 Temperature Pulse Rate 128 H 124 H Respiratory Rate Blood Pressure Pulse Oximetry Oxygen Delivery Room Air 09/22/24 22:00 09/23/24 00:00 09/23/24 00:00 Temperature 97.6 F Pulse Rate 87 79 Respiratory Rate 20 Blood Pressure 131/81 Pulse Oximetry 97 Oxygen Delivery Room Air 09/23/24 00:00 09/23/24 02:00 09/23/24 04:00 Temperature Pulse Rate 81 86 Respiratory Rate Blood Pressure Pulse Oximetry Oxygen Delivery Room Air 09/23/24 04:00 09/23/24 04:00 09/23/24 06:00 Temperature 97.7 F Pulse Rate 80 89 85 Respiratory Rate 20 Blood Pressure 107/71 Pulse Oximetry 98 Oxygen Delivery 09/23/24 07:32 09/23/24 08:00 09/23/24 08:00 Temperature 97.8 F Pulse Rate 92 97 Respiratory Rate 18 Blood Pressure 109/69 Pulse Oximetry 99 99 Oxygen Delivery Room Air 09/23/24 09:20 09/23/24 10:00 09/23/24 12:00 Temperature 97.5 F L Pulse Rate 91 122 H 92 Respiratory Rate 20 Blood Pressure 133/80 Pulse Oximetry 97 Oxygen Delivery 09/23/24 12:00 09/23/24 12:00 Temperature Pulse Rate 82 Respiratory Rate Blood Pressure Pulse Oximetry 99 Oxygen Delivery Room Air Intake/Output Intake/Output: Intake & Output 09/20/24 09/21/24 09/22/24 09/23/24 23:59 23:59 23:59 23:59 Intake Total 2576.0 2624.6 2455.4 1310 Output Total 850 330 363 6223 Balance 1726.0 1974.6 1805.4 110 Meds/Results Medications: Active Medications Generic Name Dose Route Start Last Admin Trade Name Freq PRN Reason Stop Dose Admin Apixaban 5 mg 09/20/24 21:00 09/23/24 09:19 Apixaban 5 Mg Tablet PO 5 mg Q12HR ANDRZEJ Administration Sodium Chloride 1,000 mls @ 70 mls/hr 09/20/24 04:55 09/22/24 21:40 Normal Saline Iv IV CONT 70 mls/hr .[id number] ANDRZEJ Administration Melatonin 3 mg 09/20/24 21:00 09/22/24 20:01 Melatonin 3 Mg Tablet PO 3 mg QHS ANDRZEJ Administration Metoprolol Tartrate 50 mg 09/21/24 21:00 09/23/24 09:20 Metoprolol Tartrate 50 Mg Tab PO 50 mg Q12HR ANDRZEJ Administration Ondansetron HCl 4 mg 09/20/24 04:53 09/21/24 08:04 Ondansetron Inj 4 Mg/2 Ml Vial IV PUSH 4 mg Q4H PRN Administration Nausea Pantoprazole Sodium 40 mg 09/20/24 21:00 09/23/24 09:19 Pantoprazole 40 Mg Tablet PO 40 mg Q12HR ANDRZEJ Administration Polyethylene Glycol 17 gm 09/23/24 09:00 09/23/24 09:20 Polyethylene Glycol 3350 17 Gm Powd.Pack PO Not Given QAM ANDRZEJ Polyethylene Glycol 17 gm 09/22/24 11:35 09/23/24 09:20 Polyethylene Glycol 3350 17 Gm Powd.Pack PO Not Given QAM ANDRZEJ Simethicone 125 mg 09/20/24 10:46 09/23/24 04:22 Simethicone 125 Mg Chew Tab PO 125 mg QID PRN Administration Abdominal Cramping Vitamin B Complex 1 cap 09/21/24 09:00 09/23/24 09:19 Vitamin B Complex Capsule PO 1 cap QAM ANDRZEJ Administration Vitamin D 1,000 units 09/21/24 09:00 09/23/24 09:20 Cholecalciferol 1,000 Units Tablet PO 1,000 units DAILY ANDRZEJ Administration Radiology Results: ITS Impressions Chest/Abdomen/Pelvis CTA 09/20/24 05:28 Impression: Mild emphysema. Probable focal atelectatic change or scarring at the anterior lingula. Pneumonia less likely. No significant abnormality in the abdomen or pelvis. Abdomen/Pelvis CT 09/21/24 08:31 Impression: No acute abnormality. Labs Labs: Laboratory Results - last 24 hr 09/23/24 04:13 WBC 3.7 L RBC 3.40 L Hgb 11.4 L Hct 35.5 L MCV 104.4 H MCH 33.5 MCHC 32.1 RDW 11.5 Plt Count 174 MPV 10.7 H Sodium 139 Potassium 4.5 Chloride 107 Carbon Dioxide 26 Anion Gap 6 BUN 10 Creatinine 1.13 Estim Creat Clear Calc 42 Estimated GFR > 60 Glucose 88 Calcium 8.1 L Magnesium 1.8 Total Bilirubin 0.5 AST 32 ALT 36 Alkaline Phosphatase 65 Total Protein 5.0 L Albumin 2.9 L Hospitalist MIPS Advance Care Plan I have confirmed that the patient's Advanced Care Plan is present, code status is documented, or surrogate decision maker is listed in patient medical record.: Yes Medication Reconciliation I have utilized all available resources to obtain, update and review the patients current medications (includes all prescriptions, OTC, herbals, cannabis, and nutritional supplements).: Yes
--- NOTE | 2024-09-23 14:43 | P.PNCA_ITS ---
Progress Note: A&P Assessment and Plan (1) Atrial fibrillation with RVR: Code(s): I48.91 - Unspecified atrial fibrillation Status: Acute Assessment and Plan: This is a new diagnosis. Chronicity is unknown. Echocardiogram with preserved LVEF. * Continue metoprolol 50mg q12h. Mild tachycardia with activity, asymptomatic. Average HR in the 80's. * He has a CHADS2 Vasc score of 2. Anticoagulation is indicated. Started Eliquis 5mg BID. * If he remains in atrial fibrillation, we will plan for outpatient cardioversion after he has been anticoagulated for at least 4-6 weeks. * Plan and recommendations discussed with hospitalist. Cardiology will sign off. Please call with questions. Subjective Date/time seen: 09/23/24 14:43 Interval history: Reason for visit: Atrial fibrillation with RVR HPI: Pablo White is a 79 year old male with history of GERD and hyperlipidemia. This is a patient who comes to the hospital with loss of appetite. He was diagnosed with COVID about a week ago and was prescribed Paxil of id and since that time has not had much of an appetite. He came to the emergency room because of this and was found to be in atrial fibrillation with rapid ventricular response. This is a new diagnosis for the patient. He was placed on a diltiazem drip and started on oral metoprolol. He became hypotensive, therefore the diltiazem drip was stopped he remains on metoprolol. His heart rate is well controlled. He does not have any chest pain, palpitations, shortness of breath. Date of service 09/21: AFIB is rate controlled at rest, however, heart rate increases to 120s-130s with activity. Having stomach pains this morning. Date of service 09/22/2024: He is feeling better today. Reports that when he got up to brush his teeth his heart rate increased and he was told to get back in bed. He did not feel any palpitations, chest pain, shortness of breath. Resting HR is controlled, 70's - 80's generally. Date of service 09/23/2024: HR stable. Does have mild tachycardia with activity but HR recovers with rest. He denies any palpitations, chest pain, shortness of breath. Review of Systems Review of Systems: All systems reviewed & are unremarkable except as noted in HPI and below Cardiovascular: Cardiovascular: Reports as per HPI Exam Const: General: comfortable, no acute distress, alert and awake Orientation/consciousness: patient oriented x3 HENMT: Head: normal to inspection Eyes: General: appearance normal, both eyes and all related structures Sclera: sclerae normal Pupils: Equal, round and reactive pupils present Neck: Neck: normal visual inspection, supple and no JVD Carotids: normal carotid upstroke Resp: Effort & Inspection: normal respiratory effort Cardio: Rate: regular rate Rhythm: abnormal rhythm irregularly irregular Heart sounds: S1 normal heart sound present, S2 normal heart sound present and no murmurs GI: Auscultation: normal bowel sounds Skin: General skin exam: normal color Neuro: General: patient oriented x3 Cranial nerves: Yes Equal, round and reactive pupils present Speech: normal speech Extrem: General: normal to inspection Psych: Appearance: grossly normal Mental Status: mental status grossly normal Affect: normal affect Objective Data Vital Signs Vital Signs: Vital Signs - 24 hr 09/22/24 15:47 09/22/24 16:00 09/22/24 16:00 Temperature 36.4 C L Pulse Rate 86 85 Respiratory Rate 20 Blood Pressure 102/70 Pulse Oximetry 99 99 Oxygen Delivery Room Air 09/22/24 18:00 09/22/24 20:00 09/22/24 20:00 Temperature 36.3 C L Pulse Rate 97 95 Respiratory Rate 20 Blood Pressure 117/79 Pulse Oximetry 98 Oxygen Delivery Room Air 09/22/24 20:00 09/22/24 20:01 09/22/24 22:00 Temperature Pulse Rate 128 H 124 H 87 Respiratory Rate Blood Pressure Pulse Oximetry Oxygen Delivery 09/23/24 00:00 09/23/24 00:00 09/23/24 00:00 Temperature 36.4 C Pulse Rate 79 81 Respiratory Rate 20 Blood Pressure 131/81 Pulse Oximetry 97 Oxygen Delivery Room Air 09/23/24 02:00 09/23/24 04:00 09/23/24 04:00 Temperature Pulse Rate 86 80 Respiratory Rate Blood Pressure Pulse Oximetry Oxygen Delivery Room Air 09/23/24 04:00 09/23/24 06:00 09/23/24 07:32 Temperature 36.5 C 36.6 C Pulse Rate 89 85 92 Respiratory Rate 20 18 Blood Pressure 107/71 109/69 Pulse Oximetry 98 99 Oxygen Delivery 09/23/24 08:00 09/23/24 08:00 09/23/24 09:20 Temperature Pulse Rate 97 91 Respiratory Rate Blood Pressure Pulse Oximetry 99 Oxygen Delivery Room Air 09/23/24 10:00 09/23/24 12:00 09/23/24 12:00 Temperature 36.4 C L Pulse Rate 122 H 92 Respiratory Rate 20 Blood Pressure 133/80 Pulse Oximetry 97 99 Oxygen Delivery Room Air 09/23/24 12:00 Temperature Pulse Rate 82 Respiratory Rate Blood Pressure Pulse Oximetry Oxygen Delivery Intake/Output Intake/Output: Intake & Output 09/20/24 09/21/24 09/22/24 09/23/24 23:59 23:59 23:59 23:59 Intake Total 2576.0 2624.6 2455.4 1310 Output Total 850 910 796 6134 Balance 1726.0 1974.6 1805.4 110 Meds/Results Medications: Active Medications Generic Name Dose Route Start Last Admin Trade Name Freq PRN Reason Stop Dose Admin Apixaban 5 mg 09/20/24 21:00 09/23/24 09:19 Apixaban 5 Mg Tablet PO 5 mg Q12HR ANDRZEJ Administration Sodium Chloride 1,000 mls @ 70 mls/hr 09/20/24 04:55 09/22/24 21:40 Normal Saline Iv IV CONT 70 mls/hr .[id number] ANDRZEJ Administration Melatonin 3 mg 09/20/24 21:00 09/22/24 20:01 Melatonin 3 Mg Tablet PO 3 mg QHS ANDRZEJ Administration Metoprolol Tartrate 50 mg 09/21/24 21:00 09/23/24 09:20 Metoprolol Tartrate 50 Mg Tab PO 50 mg Q12HR ANDRZEJ Administration Ondansetron HCl 4 mg 09/20/24 04:53 09/21/24 08:04 Ondansetron Inj 4 Mg/2 Ml Vial IV PUSH 4 mg Q4H PRN Administration Nausea Pantoprazole Sodium 40 mg 09/20/24 21:00 09/23/24 09:19 Pantoprazole 40 Mg Tablet PO 40 mg Q12HR ANDRZEJ Administration Polyethylene Glycol 17 gm 09/23/24 09:00 09/23/24 09:20 Polyethylene Glycol 3350 17 Gm Powd.Pack PO Not Given QAM ANDRZEJ Polyethylene Glycol 17 gm 09/22/24 11:35 09/23/24 09:20 Polyethylene Glycol 3350 17 Gm Powd.Pack PO Not Given QAM ANDRZEJ Simethicone 125 mg 09/20/24 10:46 09/23/24 04:22 Simethicone 125 Mg Chew Tab PO 125 mg QID PRN Administration Abdominal Cramping Vitamin B Complex 1 cap 09/21/24 09:00 09/23/24 09:19 Vitamin B Complex Capsule PO 1 cap QAM ANDRZEJ Administration Vitamin D 1,000 units 09/21/24 09:00 09/23/24 09:20 Cholecalciferol 1,000 Units Tablet PO 1,000 units DAILY ANDRZEJ Administration Radiology Results: ITS Impressions Chest/Abdomen/Pelvis CTA 09/20/24 05:28 Impression: Mild emphysema. Probable focal atelectatic change or scarring at the anterior lingula. Pneumonia less likely. No significant abnormality in the abdomen or pelvis. Abdomen/Pelvis CT 09/21/24 08:31 Impression: No acute abnormality. Labs Labs: Laboratory Results - last 24 hr 09/23/24 04:13 WBC 3.7 L RBC 3.40 L Hgb 11.4 L Hct 35.5 L MCV 104.4 H MCH 33.5 MCHC 32.1 RDW 11.5 Plt Count 174 MPV 10.7 H Sodium 139 Potassium 4.5 Chloride 107 Carbon Dioxide 26 Anion Gap 6 BUN 10 Creatinine 1.13 Estim Creat Clear Calc 42 Estimated GFR > 60 Glucose 88 Calcium 8.1 L Magnesium 1.8 Total Bilirubin 0.5 AST 32 ALT 36 Alkaline Phosphatase 65 Total Protein 5.0 L Albumin 2.9 L
== END 2024-09-23 16:48 | disposition home or self-care (01) | DRG 391 ==
LOC: ANHED 09-20 03:15 → ANHIMU 09-20 05:04
PROVIDERS: Family Medicine; Student in an Organized Health Care Education/Training Program; Admitting Provider General Practice; Emergency Provider Physician Assistant; PCP Family Medicine; Visit Provider General Practice
DX: K29.70 Gastritis, unspecified, without bleeding (principal); U07.1 COVID-19; I48.91 Unspecified atrial fibrillation; K21.9 Gastro-esophageal reflux disease without esophagitis; E86.0 Dehydration; E78.00 Pure hypercholesterolemia, unspecified; Z85.47 Personal history of malignant neoplasm of testis; Z87.891 Personal history of nicotine dependence
CPT/HCPCS: 36415; 36600; 71275; 74174; 74176; 80048; 80053; 80076; 81001; 82805; 83605; 83690; 83735; 83880; 84100; 84443; 84484; 85018; 85025; 85027; 87637; 93005; 93306; 96361; 96366; 96372; 96374; 96375; 96376; 99285; A9270; G0378; J1650; J2270; J2405; J2470; J7030; Q9967

== ENCOUNTER 2024-10-07 08:06 | Outpatient (CLI) | payer BC, SELFPAY ==
--- NOTE | ~2024-10-07 | XR_ITS ---
EXAMINATION: XR UGIAC sm bowel esophagram DATE: 10/07/2024 10:02 INDICATION: Gastroesophageal reflux disease without esophagitis TECHNIQUE: The patient drank thick barium, gas-producing crystals, and thin barium. Fluoroscopic spot radiographs of the hypopharynx, esophagus, stomach and proximal small bowel were obtained. Additiona l overhead radiographs were obtained during the transit through the small bowel. Spot fluoroscopic i mages of the small bowel were obtained upon contrast reaching the cecum. A total of 684 fluoroscopic images and 4 overhead radiographs were obtained. Fluoroscopy exposure time was 3.4 minutes. Total DAP was 16.005 Gycm^2. COMPARISON: None. FINDINGS: The pharynx is symmetric and without evidence of mass lesion or mucosal irregularity. The esophagus i s normal without mass or stricture. Esophageal motility is normal. Small sliding-type hiatal hernia w ith gastroesophageal junction 4 cm above level of the diaphragm. There was no gastroesophageal reflux with provocative maneuvers. The stomach and proximal small bowel are normal. Transit time from the stomach to proximal colon was approximately 30 minutes. There is normal caliber and mucosal fold pattern throughout the small bowel. Terminal ileum is normal. No tethering or abn ormal mass effect observed upon the small bowel with real-time fluoroscopy. IMPRESSION: 1. Small sliding-type hiatal hernia without evident gastroesophageal reflux with provocative maneuver s. Reviewed, dictated and finalized at location B. IMPRESSION: 1. Small sliding-type hiatal hernia without evident gastroesophageal reflux wit h provocative maneuvers.
--- OUTSIDE RECORDS SUMMARY | 2024-10-07 08:15 | XMS_ITS | Clinical Summary ---
Author Organization [facility] Address [address] [place] [id number] Care Team Providers Care Travel Occupational Therapist Name Role Phone Ulises Ward MD Primary Care Provider [phone] Allergies Active Allergy Reactions Criticality Noted Date [...] on file Legal Sex Male 1:32 PM AW[employer]ING [employer]FT[employer] Gender Identity Not on file Sexual Orientation Not on file Last Filed Vital Signs Vital Sign Reading Time Taken Comments Blood Pressure 114/67 04/14/2023 6:36 PM AWNING CRAFTSPERSON Pulse 102 04/14/2023 6:36 PM AWNING CRAFTSPERSON Temperature 36.8 C (98.2 F) 04/14/2023 6:36 PM AWNING CRAFTSPERSON Respiratory Rate 20 04/14/2023 6:36 PM AWNING CRAFTSPERSON Oxygen Saturation 95% 04/14/2023 6:36 PM AWNING CRAFTSPERSON Inhaled Oxygen Concentration - - Weight 65.8 kg (145 lb) 04/14/2023 1:48 PM AWNING CRAFTSPERSON Height 180.3 cm (5' 11 ) 04/14/2023 1:48 PM AWNING CRAFTSPERSON Body Mass Index 20.22 04/14/2023 1:48 PM AWNING CRAFTSPERSON Plan of Treatment Health Maintenance Due Date [...] to complete this topic Insurance Care Teams Travel Occupational Therapist Relationship Specialty Start Date End Date Ulises Ward MD PCP - General FAMILY PRACTICE 04/14/23
== END 2024-10-07 08:07 | disposition home or self-care (01) ==
PROVIDERS: PCP Family Medicine; Visit Provider Nurse Practitioner Family
DX: K44.9 Diaphragmatic hernia without obstruction or gangrene (principal)
CPT/HCPCS: 74246; 74248

== ENCOUNTER 2024-11-03 00:14 | Day surgery (SDC) | payer BC, SELFPAY ==
[2024-11-02 10:45] VITALS: BMI 18.6
[2024-11-03] VITALS (7 sets, daily range): BP systolic 88–107; BP diastolic 64–75; PULSE 57–95; RESP 12–23; TEMP 36.6; O2SAT 98–100; BMI 19.9
--- NOTE | 2024-11-03 07:00 | ECG_ITS ---
Test Date: 2024-11-03 07:30:22 Measurements Intervals [place] Rate: 87 P: 0 MO: 0 QRS: 91 QRSD: 107 T: 17 QT: 350 QTc: 422 Interpretive Statements ATRIAL FIBRILLATION INCOMPLETE RIGHT BUNDLE BRANCH BLOCK DELAYED PRECORDIAL R/S TRANSITION ABNORMAL ECG Compared to ECG 09/20/2024 04:38:09 NO SIGNIFICANT CHANGE Electronically Signed On 11-03-2024 07:35:48 CDT by Jerod Pleitez D.O.
[2024-11-03 08:04] LABS: Anion Gap 3 mmol/L (4-12); Blood Urea Nitrogen 18 mg/dL (9-20); Calcium 9.1 mg/dL (8.4-10.2); Carbon Dioxide 28 mmol/L (22-30); Chloride 106 mmol/L (98-107); Estimated CRCL calculation 44 ml/min; Estimated Glomerular Filt Rate > 60; Glucose 101 mg/dL (65-110); Potassium 4.3 mmol/L (3.4-5.0); Sodium 137 mmol/L (137-145)
--- NOTE | 2024-11-03 08:30 | ECG_ITS ---
Test Date: 2024-11-03 08:38:37 Measurements Intervals [place] Rate: 56 P: 66 IN: 158 QRS: 70 QRSD: 93 T: 37 QT: 443 QTc: 429 Interpretive Statements SINUS BRADYCARDIA WITH OCCASIONAL VENTRICULAR PREMATURE COMPLEXES LEFT ATRIAL ENLARGEMENT INCOMPLETE RIGHT BUNDLE BRANCH BLOCK BASELINE ARTIFACT- V3-V4 BORDERLINE ECG Compared to ECG 11/03/2024 07:30:22 Atrial fibrillation no longer present Electronically Signed On 11-03-2024 09:04:19 CDT by Jerod Pleitez D.O.
[2024-11-03] MEDS: fentaNYL CITRATE INJ (*CRX) 100 MCG/2 ML VIAL 50 MCG IV PUSH (08:34)
[2024-11-03] MEDS: MIDAZOLAM HCL (*CRX) 2 MG/2 ML VIAL IV PUSH (08:34)
[2024-11-03] MEDS: PROPOFOL IV EMULSION 200 MG/20 ML VIAL 20 MG IV PUSH (08:35)
--- NOTE | 2024-11-03 09:39 | WPDHPUPDATE1 ---
History and Physical Update Update Date/Time: 11/03/24 08:19 History and Physical has been reviewed, including an updated exam of the patient. There are NO changes in the patient's condition. Risks, benefits, and alternatives have been discussed and questions answered. Patient agrees to proceed with procedure.
--- NOTE | 2024-11-03 09:39 | WPDMODSED ---
Moderate Sedation Note-Pt Data Patient Data Allergies Allergy/AdvReac Type Severity Reaction Status Date / Time aspirin Allergy Unknown HIVES Verified 11/03/24 07:34 ibuprofen Allergy Unknown HIVES Verified 11/03/24 07:34 Home Medications ?Medication ?Instructions ?Recorded ?Confirmed ?Type melatonin 3 mg capsule 3 mg PO QHS 10/06/23 11/02/24 History omeprazole 40 mg capsule,delayed 40 mg PO BID #180 caps 08/04/24 11/03/24 Rx release cholecalciferol (vitamin D3) 50 50 mcg PO DAILY 09/29/24 11/02/24 History mcg (2,000 unit) capsule mecobalamin (vitamin B12) 1,000 1,000 mcg PO DAILY #100 tabs 09/29/24 11/02/24 Rx mcg chewable tablet apixaban 5 mg tablet (Eliquis) 5 mg PO Q12HR #30 tabs 10/06/24 11/03/24 Rx metoprolol tartrate 50 mg tablet 25 mg PO Q12HR 10/31/24 11/03/24 History Current Medications: Active Medications Sodium Chloride (Normal Saline Iv) 1,000 mls @ 30 mls/hr IV CONT .Q24H ANDRZEJ Sedation/Anesthesia: No previous sedation/anesthesia problems (including family history). [facility] Past Medical History Medical History Protein-calorie malnutrition, mild Personal history of adenomatous and serrated colon polyps COVID Lack of appetite Testicle cancer Cigarette nicotine dependence in remission GERD (gastroesophageal reflux disease) Pure hypercholesterolemia, unspecified Family History Family History Father Heart disease Mother Lung cancer Sibling Heart disease Colon cancer Social History Social History Smoking packs per day: 1.5 Smoking cigarettes per day: 30.0 Years smoked: 50 Smoking pack-years: 75.00 Smoking status: Former smoker Tobacco type: cigarettes Second hand tobacco smoke exposure: No Smoking end date: 06/01/14 Alcohol intake: never Drinks per week: 1 Substance use: never Substance use type: marijuana Other substance usage details: edibles or gummies Last use: 9 days ago or so Do You Feel Safe in your Home?: Yes Lack of Transportation: No Lack of Food: Never True Current Housing: I Have Housing Concerned About Future Housing: No Difficulty Paying Gas/Electric Bills: No Difficulty Paying for Meds: No Currently Unemployed: No Education: Bachelor's Degree Difficulty w/ Childcare or Family Care: No Living arrangements: alone Occupation/Education: retired Gender identity (if verbalized by the patient): Male Sexual Orientation (if Verbalized by the Patient): Straight or Heterosexual Spiritual care concerns: No Mod Sed Physical Exam Physical Exam Pre Procedural Exam: Normal: Airway, Lungs, Heart Size and Heart Rate and Variation: Heart Rhythm (atrial fibrillation) Hours since solid foods: 12 Hours since liquid intake: 12 Mallampati Classification: class II Internal Medicine - PN: Obj Da Vital Signs Vital Signs: Vital Signs - 24 hr 11/03/24 07:40 11/03/24 08:30 11/03/24 08:35 Temperature 36.6 C Pulse Rate 95 90 80 Respiratory Rate 12 17 23 H Blood Pressure 102/75 107/68 94/64 L Pulse Oximetry 99 100 100 11/03/24 08:45 11/03/24 09:00 11/03/24 09:15 Temperature Pulse Rate 57 L 60 62 Respiratory Rate 12 14 16 Blood Pressure 90/73 L 88/65 L 96/69 L Pulse Oximetry 98 100 100 Meds/Results Medications: Active Medications Generic Name Dose Route Start Last Admin Trade Name Freq PRN Reason Stop Dose Admin Sodium Chloride 1,000 mls @ 30 mls/hr 11/03/24 07:00 Normal Saline Iv IV CONT .Q24H ANDRZEJ Labs 11/03/24 07:32 Labs: Laboratory Results - last 24 hr 11/03/24 07:32 Sodium 137 Potassium 4.3 Chloride 106 Carbon Dioxide 28 Anion Gap 3 L BUN 18 Creatinine 1.12 Estim Creat Clear Calc 44 Estimated GFR > 60 Glucose 101 Calcium 9.1 Magnesium 2.0 ASA Classification/Sedation ASA Classification/Sedation ASA Class: III Emergent: No Risks: Risks, benefits and alternatives explained and patient/family accepted plan for sedation. Patient re-evaluated immediately prior to sedation.
--- NOTE | 2024-11-03 09:40 | P.PCNCVR_ITS ---
Cardioversion Cardioversion Date of procedure: 11/03/24 Procedure: Cardioversion Pre-op diagnosis: Paroxysmal atrial fibrillation Post-op diagnosis: Same Indications: Paroxysmal atrial fibrillation Description of procedure: After adequate sedation provided, 200 joule synchronized energy was delivered with restorationism of sinus rhythm. Sedation: Versed 2 mg Fentanyl 100 mcg Propofol 20 mg Findings: Successful synchronized cardioversion with restorationism of sinus rhythm. Conclusion: Continue metoprolol and Eliquis
== END 2024-11-03 10:02 | disposition home or self-care (01) ==
PROVIDERS: PCP Family Medicine; Visit Provider Internal Medicine
PROC: 5A2204Z Restoration of Cardiac Rhythm, Single (ICD-10-PCS; principal; 2024-11-03 08:30)
DX: I48.0 Paroxysmal atrial fibrillation (principal); F12.90 Cannabis use, unspecified, uncomplicated; Z87.891 Personal history of nicotine dependence
CPT/HCPCS: 36415; 80048; 83735; 92960; J2250; J2704; J3010; J7030